=== PATIENT | male | born 1965 | race Two or more races ===

== ENCOUNTER 2020-03-15 20:56 | Inpatient (IN) | payer MEDICAID ==
[~2020-03-15] VITALS: Ht 188 cm; Wt 75.2 kg
[2020-03-15 23:06] LABS: Urine Amorphous Crystal FEW /hpf (None Seen); Urine Bacteria FEW /hpf (None Seen); Urine Blood 2+ /uL (Negative); Urine Hyaline Cast MANY /lpf (0 - 2); Urine Mucus FEW (None Seen); Urine Specific Gravity 1.018 (1.001-1.035); Urine WBC 6 /hpf (0 - 3)
[2020-03-15 23:08] LABS: BUN/Creatinine Ratio 16.7; Bilirubin, Total 0.4 mg/dL (0.2-1.0); Calcium 7.5 mg/dL (8.5-10.1); Total Protein 7.4 g/dL (6.4-8.2)
[2020-03-15] MEDS ORDERED: InsuLIN R (HUMAN) 100 UNITS in SODIUM CHL 0.9% 99 ML IV SCH (23:10)
[2020-03-15] MEDS ORDERED: SODIUM BICARBONATE 8.4% INJ 50ML SYRINGE ONE (23:14)
[2020-03-15] MEDS ORDERED: SODIUM BICARBONATE 8.4 % INJ 50ML VIAL IV ONE (23:15)
[2020-03-15] MEDS ORDERED: DEXTROSE (50%) 50ML SYRG IV PRN (23:15)
[2020-03-15] MEDS ORDERED: InsuLIN REG 1unit/0.01ml Soln (100units/ml) ONE (23:16)
[2020-03-15 23:17] LABS: Basophils # (auto) 0 10 ^3/uL (0-0.2); Basophils % (auto) 0.2 % (0.0-2.0); Eosinophils # (auto) 0.3 10 ^3/uL (0-0.8); Eosinophils % (auto) 1.2 % (0.0-7.0); Hematocrit 42.2 % (41.0-53.0); Hemoglobin 12.7 g/dL (13.5-17.5); Lymphocytes # (auto) 0.4 10 ^3/uL (0.4-5.4); Lymphocytes % (auto) 2.2 % (10.0-50.0); Mean Corpuscular Hemoglobin 27.6 pg (28.0-32.0); Mean Corpuscular Hgb Conc. 30.2 g/dL (32.0-36.0); Mean Corpuscular Volume 91.5 fL (80.0-100.0); Monocytes # (auto) 1.9 10 ^3/uL (0-1.3); Neutrophils # (auto) 18.2 10 ^3/uL (1.6-8.6); Neutrophils % (auto) 87.4 % (37.0-80.0); Platelet Count (auto) 343 10^3/uL (140-450); Red Blood Cells 4.61 10^6/uL (4.5-5.90); Red Cell Distribution Width 15.8 % (11.8-14.3); White Blood Cell 20.8 10^3/uL (4.4-10.8)
[2020-03-15 23:23] LABS: Potassium 6.4 mmol/L (3.5-5.1)
[2020-03-15] MEDS: ACCU-CHEK COMFORT CURVE STRIP VI SCH (23:45)
[2020-03-16] MEDS ORDERED: CALCIUM CHL 100MG/ML 1,000 MG in D5W 5% 100 ML IV ONE (00:15)
[2020-03-16] MEDS ORDERED: SODIUM ZIRCONIUM CYCL 10 GM PAK PO ONE (00:15)
[2020-03-16] MEDS ORDERED: SODIUM CHLORIDE 0.9% 2,000 ML IV ONE (01:00)
[2020-03-16] MEDS ORDERED: InsuLIN REG 1unit/0.01ml Soln (100units/ml) IV ONE (01:30)
[2020-03-16] MEDS: ACCU-CHEK COMFORT CURVE STRIP VI SCH ×16 (01:39→22:29)
[2020-03-16] MEDS ORDERED: cefTRIAXone 1GM/50ML D5W 50 ML IV ONE (03:15)
[2020-03-16] MEDS ORDERED: ACETAMINOPHEN 325 MG TAB PO ONE ×2 (03:15→11:00)
[2020-03-16] MEDS ORDERED: levoFLOXacin 500MG 100 ML IV ONE (04:15)
[2020-03-16 04:21] LABS: Albumin 1.8 g/dL (3.4-5.0); Calcium 7.7 mg/dL (8.5-10.1); Potassium 5.1 mmol/L (3.5-5.1)
[2020-03-16 04:25] LABS: BUN/Creatinine Ratio 18.5; Bilirubin, Total 0.3 mg/dL (0.2-1.0); Total Protein 6.6 g/dL (6.4-8.2)
[2020-03-16] MEDS ORDERED: dilTIAZem 25 MG/5 ML VIAL IV ONE (05:00)
[2020-03-16] MEDS ORDERED: InsuLIN R (HUMAN) 100 UNITS in SODIUM CHL 0.9% 99 ML IV SCH ×2 (05:59→12:15)
[2020-03-16] MEDS: SODIUM CHLORIDE 0.9% 1,000 ML IV SCH ×2 (05:59→07:59)
[2020-03-16] MEDS ORDERED: DEXTROSE (50%) 50ML SYRG IV PRN (06:00)
[2020-03-16] MEDS ORDERED: MORPHINE SULF INJ 2 MG/ML SYRINGE 1ML IV PRN (06:00)
[2020-03-16] MEDS ORDERED: ONDANSETRON HCL 4 MG/2 ML VIAL IV PRN (06:00)
[2020-03-16] MEDS ORDERED: ACCU-CHEK COMFORT CURVE STRIP VI SCH (06:00)
[2020-03-16] MEDS ORDERED: NITROGLYCERIN 0.4 MG SL TAB SL PRN (06:00)
[2020-03-16 07:38] LABS: Calcium 7.7 mg/dL (8.5-10.1); Potassium 4.5 mmol/L (3.5-5.1)
[2020-03-16 07:41] LABS: BUN/Creatinine Ratio 17.9
[2020-03-16] MEDS ORDERED: SODIUM CHLORIDE 0.9% 1,000 ML IV SCH ×2 (09:59→11:59)
[2020-03-16] MEDS: AZITHROMYCIN 500MG/ 250ML 250 ML IV SCH (10:19)
[2020-03-16 13:47] LABS: BUN/Creatinine Ratio 19.3; Calcium 7.1 mg/dL (8.5-10.1); Potassium 3.6 mmol/L (3.5-5.1)
[2020-03-16] MEDS: ACETAMINOPHEN 325 MG TAB PO PRN ×2 (15:44→22:30)
[2020-03-16] MEDS ORDERED: SOD CHL 0.45% 1,000 ML IV SCH (16:00)
[2020-03-16] MEDS: InsuLIN R (HUMAN) 100 UNITS in SODIUM CHL 0.9% 99 ML IV SCH (17:34)
[2020-03-16 18:36] VITALS: BP 120/76
--- NOTE | 2020-03-16 18:36 | NUR ---
Pt being admitted to ICU ABIMAEL PADILLA admitted to ICU via gurney on surveillance system monitor, and portable 02. Patient transfered to bed, connected to ICU monitoring and oxygen, and weighed by bedscale. Patient oriented to Mike barber RN, unit, room, bed, and unit policies regarding patient care and visiting hours. All questions and concerns addressed, patient verbalized understanding.
[2020-03-16] MEDS ORDERED: SODIUM BICARBONATE 650 MG TAB PO ONE (18:45)
--- NOTE | 2020-03-16 18:48 | NUR ---
MRSA SENT TO LAB VIA BULLET
[2020-03-16 18:49] LABS: BUN/Creatinine Ratio 19.8; Calcium 7.4 mg/dL (8.5-10.1); Potassium 3.4 mmol/L (3.5-5.1)
--- NOTE | 2020-03-16 19:30 | NUR ---
SHIFT OPENING NOTE RECEIVED PATIENT AWAKE, ALERT AND ORIENTED X3, DELAYED. NO SOB, DISTRESS OR PAIN NOTED. ON 2L N/C. INSULIN DRIP AT 6 UNITS/ML. WILL TITRATE PER PROTOCOL. SCHUSTER CATH DRAINING YELLOW URINE TO GRAVITY. PHYSICAL ASSESSMENT COMPLETED, SEE INTERVENTIONS. INSTRUCTED ON POC AND TO CALL FOR ASSIST NEEDED. BED IS IN THE LOWEST POSITION WITH SIDE RAILS UP X2, CALL LIGHT IS WITHIN REACH.
[2020-03-16 20:00] VITALS: BP 148/78
[2020-03-16] MEDS: cefTRIAXone 1GM/50ML D5W 50 ML IV SCH (20:16)
[2020-03-16 21:00] VITALS: BP 125/73
[2020-03-16] MEDS: SODIUM BICARBONATE 650 MG TAB PO SCH (21:13)
[2020-03-16] MEDS: SODIUM BICARBONATE 50ML VIAL 50 ML in SOD CHL 0.45% 1,000 ML IV SCH (21:19)
[2020-03-16 22:00] VITALS: BP 131/64
--- NOTE | 2020-03-16 22:55 | NUR ---
UPDATED SISTER CHANI ON PATIENTS STATUS PASSWORD SET UP: CHRISTIANO 1213 Addendum: 03/17/20 at 0604 by Nicole Munoz RN PER SISTER, SHE WILL CALL IN THE MORNING WITH AN UPDATE [facility] FOR THE PATIENT.
[2020-03-16 23:00] VITALS: BP 151/79
[2020-03-17] VITALS (22 sets, daily range): BP systolic 111–166; BP diastolic 60–95
[2020-03-17] MEDS: ACCU-CHEK COMFORT CURVE STRIP VI SCH ×16 (00:06→22:30)
[2020-03-17 01:16] LABS: BUN/Creatinine Ratio 20.1; Calcium 6.9 mg/dL (8.5-10.1); Potassium 4.1 mmol/L (3.5-5.1)
--- NOTE | 2020-03-17 04:00 | NUR ---
MORNING HYGIENE CARE FULL BED BATH PERFORMED USING CHG WIPES. GOWN CHANGED. PARTIAL LINEN CHANGED. PATIENT REPOSITIONED FOR COMFORT. TOLERATED IT WELL.
[2020-03-17] MEDS: ACETAMINOPHEN 325 MG TAB PO PRN ×2 (04:39→19:45)
--- NOTE | 2020-03-17 04:40 | NUR ---
INCREASE TEMP 102.5 ORALLY. TYLENOL GIVEN. COOLING MEASURES STARTED. ICE PACKS PLACED ON BODY, COLD RAGS ON NECK AND FOREHEAD. WILL REASSESS IN AN HOUR.
[2020-03-17 05:28] LABS: Alcohol, Urine < 3.0 mg/dL (0-10); Amphetamine Screen, Urine NEGATIVE (NEGATIVE); Barbiturate Scree,Urine NEGATIVE (NEGATIVE); Benzodiazephine Screen, Urine NEGATIVE (NEGATIVE); Cannabinoid Screen, Urine NEGATIVE (NEGATIVE); Cocaine Screen, Urine NEGATIVE (NEGATIVE); Opiate Scree,Urine NEGATIVE (NEGATIVE); Phencyclidine Screen, Urine NEGATIVE (NEGATIVE)
[2020-03-17] MEDS: SODIUM BICARBONATE 50ML VIAL 50 ML in SOD CHL 0.45% 1,000 ML IV SCH ×3 (05:30→22:03)
[2020-03-17] MEDS: SODIUM BICARBONATE 650 MG TAB PO SCH ×2 (05:53→11:43)
--- NOTE | 2020-03-17 06:55 | NUR ---
PATIENT PULLED OUT IV FROM LEFT HAND ACCIDENTLY NEW IV STARTED TO RIGHT FOREARM 20 G BY AMY ROY.
--- NOTE | 2020-03-17 07:24 | NUR ---
END OF SHIFT REPORT GIVEN AND CARE ENDORSED TO RODNEY ROY.
--- NOTE | 2020-03-17 07:30 | NUR ---
ASSESS- PT. LYING IN BED AWAKE, ALERT AND ORIENTED TIMES FOUR. PT. IS FORGETFUL. DENIES ANY PAIN OR DISCOMFORT. LUNGS CLEAR KAY. INSPIRATORY AND EXPIRATORY. NO SOB. O2 2L N/C. ABD. SOFT, FLAT, NON-TENDER. BOWEL SOUNDS ALL FOUR QUADRANTS. NO N/V. F/C TO GRAVITY WITH CLEAR YELLOW URINE. RADIAL PULSES STRONG, PALPABLE KAY. RT. DORSALIS PEDAL PULSE WEAK, PALPABLE. NO EDEMA. SCAB TO LT. BKA, NO OPENING. PT. MOVES ALL EXTREMITIES WITHOUT DIFFICULTY. ABLE TO TURN SELF IN BED.
[2020-03-17] MEDS: AZITHROMYCIN 500MG/ 250ML 250 ML IV SCH (09:38)
--- NOTE | 2020-03-17 10:30 | NUR ---
TECH AT BS FOR KAY. US KIDNEYS.
--- NOTE | 2020-03-17 10:40 | NUR ---
PT'S. SISTER CHANI CALLED AND HAD PASSWORD. GAVE UPDATE ON PHONE.
[2020-03-17] MEDS ORDERED: SUCCINYLCHOLINE CHLORIDE 20 MG/ML 10ML VIAL IV ONE (12:42)
--- NOTE | 2020-03-17 14:20 | NUR ---
DR. ESPOSITO Provider/Hospitalist at bedside. GAVE UPDATE ON PT. NEW ORDERS RECEIVED.
[2020-03-17] MEDS: InsuLIN R (HUMAN) 100 UNITS in SODIUM CHL 0.9% 99 ML IV SCH (16:41)
--- NOTE | 2020-03-17 17:00 | NUR ---
PT. HAS BEEN RESTING WITH EYES CLOSED. NO SIGNS OF DISTRESS OR DISCOMFORT.
--- NOTE | 2020-03-17 19:30 | NUR ---
Opening Shift Note Received pt in bed, alert and oriented times four. Full assessment done see interventions. Bed locked in lowest position. All alarms on and audible. On insulin gtt. IV 20g to right forearm, patent and site benign. IV to left AC patent and benign. Will continue to monitor closely.
--- NOTE | 2020-03-17 19:45 | NUR ---
Febrile at 100.8. Tylenol given.
[2020-03-17] MEDS: cefTRIAXone 1GM/50ML D5W 50 ML IV SCH (21:58)
--- NOTE | 2020-03-17 22:30 | NUR ---
Family Pt's sister phoned, update given.
[2020-03-18] VITALS (19 sets, daily range): BP systolic 119–162; BP diastolic 69–98
[2020-03-18] MEDS: ACCU-CHEK COMFORT CURVE STRIP VI SCH ×12 (01:30→21:27)
[2020-03-18 04:27] LABS: Basophils # (auto) 0 10 ^3/uL (0-0.2); Basophils % (auto) 0.5 % (0.0-2.0); Eosinophils # (auto) 0.6 10 ^3/uL (0-0.8); Eosinophils % (auto) 7.5 % (0.0-7.0); Hematocrit 30.7 % (41.0-53.0); Hemoglobin 10.5 g/dL (13.5-17.5); Lymphocytes # (auto) 0.5 10 ^3/uL (0.4-5.4); Lymphocytes % (auto) 6.5 % (10.0-50.0); Mean Corpuscular Hemoglobin 28.3 pg (28.0-32.0); Mean Corpuscular Hgb Conc. 34.3 g/dL (32.0-36.0); Mean Corpuscular Volume 82.7 fL (80.0-100.0); Monocytes # (auto) 0.4 10 ^3/uL (0-1.3); Monocytes % (auto) 4.5 % (0.0-12.0); Neutrophils # (auto) 6.7 10 ^3/uL (1.6-8.6); Platelet Count (auto) 185 10^3/uL (140-450); Red Blood Cells 3.71 10^6/uL (4.5-5.90); Red Cell Distribution Width 14.9 % (11.8-14.3); White Blood Cell 8.3 10^3/uL (4.4-10.8)
[2020-03-18 04:43] LABS: Magnesium 1.7 mg/dL (1.6-2.6)
[2020-03-18 04:45] LABS: BUN/Creatinine Ratio 19.1; Potassium 2.8 mmol/L (3.5-5.1)
--- NOTE | 2020-03-18 05:00 | NUR ---
Cares Pt refused bed bath and linen change at this time. stated he wants to sleep longer
--- NOTE | 2020-03-18 06:36 | NUR ---
Paged hospitalist for critical potassium level of 2.8. New orders received.
[2020-03-18] MEDS ORDERED: POTASSIUM CHLORIDE 40 MEQ, LIDOCAINE 1% (LOCAL ANESTH.) 4 ML in SODIUM CHL 0.9% 100 ML IV ONE (06:45)
[2020-03-18] MEDS ORDERED: POTASSIUM CHL 20 Meq TABLET PO ONE ×2 (06:45→13:30)
[2020-03-18] MEDS: InsuLIN R (HUMAN) 100 UNITS in SODIUM CHL 0.9% 99 ML IV SCH (07:29)
--- NOTE | 2020-03-18 07:30 | NUR ---
ASSESS- PT. LYING IN BED WITH EYES CLOSED, AROUSABLE TO NAME. ALERT AND ORIENTED TIMES FOUR. DENIES ANY PAIN OR DISCOMFORT. LUNGS CLEAR KAY. INSPIRATORY AND EXPIRATORY. NO SOB. ON R/A. ABD. SOFT, FLAT, NON-TENDER. NO N/V. BOWEL SOUNDS ALL FOUR QUADRANTS. F/C TO GRAVITY WITH CLEAR YELLOW URINE. RADIAL PULSES STRONG, PALPABLE KAY. DORSALIS PEDAL PULSE RT. FT WEAK, PALPABLE . LT. BKA WITH CLOSED SCAB OPEN TO AIR.
[2020-03-18] MEDS: SODIUM BICARBONATE 50ML VIAL 50 ML in SOD CHL 0.45% 1,000 ML IV SCH (08:02)
[2020-03-18] MEDS: AZITHROMYCIN 500MG/ 250ML 250 ML IV SCH (09:29)
--- NOTE | 2020-03-18 10:00 | NUR ---
PT. INCONTINENT OF LIQUID BROWN/GREEN STOOL. FABIANA CARE DONE AND COMPLETE LINEN CHANGE DONE AND GOWN CHANGED.
--- NOTE | 2020-03-18 12:12 | NUR ---
Nutrition Assessment note please see attached link for complete assessment Est Energy needs IBW 86 [id number] kcals (25-30 kcal/kgBW, Est Protein needs: 86-94 gms/day (1.0-1.1 gm/kgBW). Will continue to monitor and reassess prn. Addendum: 03/18/20 at [address] Amended: Links added.
--- NOTE | 2020-03-18 13:00 | NUR ---
PT. HAS BEEN RESTING WITH EYES CLOSED. NO SIGNS OF DISTRESS OR DISCOMFORT.
[2020-03-18] MEDS: SOD CHL 0.45% 1,000 ML IV SCH (13:39)
--- NOTE | 2020-03-18 13:44 | NUR ---
Called/paged Dr. MCKEON called re:. Waiting for call back. Continue care.
--- NOTE | 2020-03-18 14:00 | NUR ---
DR. MCKEON Provider/Hospitalist at bedside. GAVE UPDATE ON PT. AND INFORMED OF PT. RECEIVING 40 MEQ. KCL PO THIS AM AND 40 MEQ. KCL IV THIS AM GIVEN BY ME. ORDERED REPEAT K LEVEL NOW AND IF LEVEL BELOW NORMAL GIVE 40 MEQ. KCL PREVIOUSLY ORDERED BY DR. MCKEON.
--- NOTE | 2020-03-18 15:03 | NUR ---
DR. ESPOSITO Provider/Hospitalist at bedside. GAVE UPDATE ON PT. NEW ORDERS RECEIVED.
[2020-03-18] MEDS ORDERED: DEXTROSE (50%) 50ML SYRG IV PRN (15:15)
[2020-03-18] MEDS ORDERED: INSULIN LANTUS (GLARGINE) 1 /0.01ml (100units/ml) SC ONE (15:15)
--- NOTE | 2020-03-18 15:35 | NUR ---
REPEAT K LEVEL 3.4. GAVE PT. 40 MEQ. KCL PO ORDERED BY DR. MCKEON IF K LEVEL REMAINED BELOW NORMAL.
[2020-03-18] MEDS: InsuLIN REG 1unit/0.01ml Soln (100units/ml) SC SCH ×2 (17:07→21:26)
--- NOTE | 2020-03-18 18:30 | NUR ---
PT. TOLERATING 2GM. NA, CONSISTENT CARB DIET. NO N/V. SWALLOWING WITHOUT DIFFICULTY.
[2020-03-18] MEDS: cefTRIAXone 1GM/50ML D5W 50 ML IV SCH (21:25)
--- NOTE | 2020-03-18 23:01 | NUR ---
sister called updated on pt status and informed on tele order. family member aware and all questions answered.
[2020-03-19] VITALS (15 sets, daily range): BP systolic 98–147; BP diastolic 62–95
[2020-03-19] MEDS: SOD CHL 0.45% 1,000 ML IV SCH ×2 (02:50→04:05)
[2020-03-19 04:31] LABS: Potassium 3.3 mmol/L (3.5-5.1)
[2020-03-19 04:39] LABS: BUN/Creatinine Ratio 17.5; Calcium 6.7 mg/dL (8.5-10.1)
[2020-03-19 04:59] LABS: Basophils # (auto) 0 10 ^3/uL (0-0.2); Basophils % (auto) 0.2 % (0.0-2.0); Eosinophils # (auto) 0.9 10 ^3/uL (0-0.8); Eosinophils % (auto) 12.6 % (0.0-7.0); Hematocrit 28.2 % (41.0-53.0); Hemoglobin 9.6 g/dL (13.5-17.5); Lymphocytes # (auto) 0.7 10 ^3/uL (0.4-5.4); Lymphocytes % (auto) 9.6 % (10.0-50.0); Mean Corpuscular Hgb Conc. 33.9 g/dL (32.0-36.0); Mean Corpuscular Volume 82.5 fL (80.0-100.0); Monocytes # (auto) 0.4 10 ^3/uL (0-1.3); Monocytes % (auto) 5.2 % (0.0-12.0); Neutrophils # (auto) 5.2 10 ^3/uL (1.6-8.6); Neutrophils % (auto) 72.4 % (37.0-80.0); Nucleated Red Blood Cells % 0.1 %; Platelet Count (auto) 139 10^3/uL (140-450); Red Blood Cells 3.42 10^6/uL (4.5-5.90); Red Cell Distribution Width 14.7 % (11.8-14.3); White Blood Cell 7.1 10^3/uL (4.4-10.8)
[2020-03-19] MEDS ORDERED: POTASSIUM CHL 20MEQ/100ML 100 ML IV ONE (06:00)
[2020-03-19] MEDS: InsuLIN REG 1unit/0.01ml Soln (100units/ml) SC SCH ×4 (06:12→22:00)
[2020-03-19] MEDS: ACCU-CHEK COMFORT CURVE STRIP VI SCH ×4 (06:13→22:00)
--- NOTE | 2020-03-19 07:09 | NUR ---
ENDORSED CARE TO DAY NURSE. PT AWAKE AND ALERT. NO DISTRESS NOTED.
--- NOTE | 2020-03-19 07:25 | NUR ---
INITIAL CONTACT Report received from Garrett ROY, care assumed. Patient observed resting in bed, no distress noted. Patient is awake, alert, and oriented. Axillary temperature 99.5, blankets removed. Patient able to reposition self in bed. Left BKA noted. Pulses palpable bilaterally. Lungs clear, pt on room air. Respiratory even, and unlabored, denies shortness of breath. Chicas catheter patent and secured below bladder. See skin/wound assessment. Bed locked in lowest position, call light within reach. Patient instructed to call for assistance. Patient verbalized understanding. Will continue to monitor.
--- NOTE | 2020-03-19 09:30 | NUR ---
ELIMINATION Patient assisted on to bedpan for bowel movement. Small amount of liquid brown stool elimination. Ivelisse care and chux change performed.
--- NOTE | 2020-03-19 11:17 | NUR ---
MD VISIT Dr.Tanjavour jang at bedside.
--- NOTE | 2020-03-19 12:00 | NUR ---
MD VISIT roundfanny at bedside. MD reviewing medical chart.
[2020-03-19] MEDS: ACETAMINOPHEN 325 MG TAB PO PRN (12:01)
[2020-03-19] MEDS: AZITHROMYCIN 500MG/ 250ML 250 ML IV SCH (12:01)
[2020-03-19] MEDS: SODIUM CHLORIDE 0.9% 1,000 ML IV SCH (13:39)
--- NOTE | 2020-03-19 14:03 | NUR ---
PT EVAL Physical therapist at bedside for evaluation.
--- NOTE | 2020-03-19 15:22 | NUR ---
ELIMINATION Patient assisted to bedside commode for bowel movement. Ivelisse care and chux change performed. Patient ambulated back to bed without difficulty. Vital signs remain stable. Will continue to monitor.
--- NOTE | 2020-03-19 16:40 | NUR ---
MD VISIT Dr.Sandhu jang at bedside.
--- NOTE | 2020-03-19 17:09 | NUR ---
FAMILY Samina, patient sister called for update. Password provided.
--- NOTE | 2020-03-19 18:10 | NUR ---
PAGED paged regarding elevated blood sugar trends. Awaiting call back with orders regarding change in sliding scale.
--- NOTE | 2020-03-19 18:34 | NUR ---
RETURNED PAGE ordered for sliding scale to be increased.
--- NOTE | 2020-03-19 19:12 | NUR ---
REPORT Report given to Juan ROY care endorsed.
--- NOTE | 2020-03-19 20:09 | NUR ---
REPORT GIVEN TO JAROCHO PT WILL BE MOVED TO ROOM 272A AFTER COMPLETING 2000 INTERVENTIONS
--- NOTE | 2020-03-19 20:39 | NUR ---
PATIENTS BELONGINGS PT STATES THAT HE HAD LUISITO SIN, STATES IF HE DOES NOT HAVE IT THEN MOST LIKELY HIS FATHER TOOK IT. I DO NOT SEE JANUARY ON "PATIENT PROPERTY MANAGEMENT FROM"
--- NOTE | 2020-03-19 20:52 | NUR ---
PT TRANSFERRED TO TELE 272A TRANSFERRED BY WHEELCHAIR ON TELE, ROOM AIR, WITH RN (TONI) AND DIVYA (ELECTRICAL ASSISTANT/SECRETORY) BY THE SIDE. BROUGHT WITH PT FOLDER AND BELONGINGS (PROSTHETIC LEG, SHOE, CLOTHING). PT TOLERATED WELL. JAROCHO (KIRILL) AT BEDSIDE.
[2020-03-19] MEDS: cefTRIAXone 1GM/50ML D5W 50 ML IV SCH (21:12)
[2020-03-19] MEDS: HEPARIN SODIUM (PORCINE) 5000 UNITS/ML 1ML VIAL SC SCH (22:20)
[2020-03-20] MEDS: SODIUM CHLORIDE 0.9% 1,000 ML IV SCH (01:20)
[2020-03-20 05:09] VITALS: BP 141/94
[2020-03-20 06:14] LABS: Calcium 6.7 mg/dL (8.5-10.1); Potassium 3.4 mmol/L (3.5-5.1)
[2020-03-20 06:18] LABS: BUN/Creatinine Ratio 17.9; Bilirubin, Total 0.2 mg/dL (0.2-1.0); Phosphorus 1.6 mg/dL (2.5-4.90); Total Protein 5.3 g/dL (6.4-8.2)
[2020-03-20] MEDS: ACCU-CHEK COMFORT CURVE STRIP VI SCH ×4 (06:43→22:00)
[2020-03-20] MEDS: InsuLIN REG 1unit/0.01ml Soln (100units/ml) SC SCH ×4 (06:48→22:00)
--- NOTE | 2020-03-20 07:30 | NUR ---
Opening Note Assumed patient care from NOC RN, Chet. Patient currently resting in bed, easily aroused and responds to name. Patient AOx4, no signs of distress at this time. Safety precautions in place, will continue to monitor.
[2020-03-20] MEDS: ACETAMINOPHEN 325 MG TAB PO PRN (08:48)
--- NOTE | 2020-03-20 08:49 | NUR ---
Febrile Patient currently has fever of 102 degrees F, Tylenol administered. Cooling measures offered, patient refusing at this time, patient educated on need for cooling measures but does not want ice pack or to remove extra blanket at this time. Patient states "[he] don't want it right now." Ice pack left at bedside, within reach, encouraged to utilize it to reduce fever.
[2020-03-20 09:11] VITALS: BP 144/85
[2020-03-20] MEDS ORDERED: POTASSIUM PHOSPHATE 44 MEQ in D5W 5% 250 ML IV ONE (10:15)
[2020-03-20] MEDS ORDERED: ERGOCALCIFEROL 50,000 UNIT(1.25MG) CAP PO SCH (10:15)
--- NOTE | 2020-03-20 10:20 | NUR ---
IV Discontinued Right FA and Left AC IV discontinued due to leaking and signs of infiltration, patient complaint of pain at IV sites. Sites appear reddened and irritated. Both IVs removed, catheters intact, pressure dressings applied to sites. New IV started on left forearm, 20gauge. Blood return noted, flushes easily. Patient tolerated well with no signs of distress, respirations even and unlabored. Will continue to monitor.
[2020-03-20] MEDS: AZITHROMYCIN 500MG/ 250ML 250 ML IV SCH (11:13)
[2020-03-20] MEDS: HEPARIN SODIUM (PORCINE) 5000 UNITS/ML 1ML VIAL SC SCH ×2 (11:13→22:47)
[2020-03-20 12:56] VITALS: BP 117/74
--- NOTE | 2020-03-20 14:57 | NUR ---
assessment Patient is a 54 year old male who is alert and oriented. Patients cognitive abilities are intact. Prior to admission patient lived home with family and functioned with assistance. Per patient he will return home to his prior living arrangements post discharge and family will transport him home. Patient informed me he came to ER for DKA. Patient was admitted to ICU. Patient will benefit from home health for diabetic education and medication management. Patient informed me he has a prosthetic leg, fww, and a wheelchair for home use. Patients PCP is Dr Wilder. Patient feels safe returning home on discharge. I informed patient he has a right to speak to a delinquency prevention social worker regarding all care. I informed patient he has a right to participate in any and all discharge planning. Patient does not have a POA and advanced directive. I have offered patient information on POA and advanced directives. I informed the patient the advantages and benefits of having an Advanced Directive. Patient verbalized understanding and agreed to discharge plan. Addendum: 03/20/20 at 1459 by Sheridan MAURICIO Amended: Links added.
[2020-03-20 17:24] VITALS: BP 143/97
--- NOTE | 2020-03-20 17:36 | NUR ---
at bedside Dr. Abdi at bedside, new orders received.
--- NOTE | 2020-03-20 19:00 | NUR ---
Opening Shift Note Assumed care of patient, awake and alert. No S/S of distress/SOB or pain. Instructed on POC and to call for assist PRN, will continue to monitor for changes Q1hr and PRN.
[2020-03-20] MEDS: cefTRIAXone 1GM/50ML D5W 50 ML IV SCH (21:15)
[2020-03-20 22:00] VITALS: BP 152/99
[2020-03-21 05:00] VITALS: BP 126/83
[2020-03-21 06:00] LABS: Basophils # (auto) 0 10 ^3/uL (0-0.2); Basophils % (auto) 0.3 % (0.0-2.0); Eosinophils % (auto) 14.1 % (0.0-7.0); Hematocrit 27.6 % (41.0-53.0); Hemoglobin 9.4 g/dL (13.5-17.5); Lymphocytes % (auto) 13.2 % (10.0-50.0); Mean Corpuscular Hemoglobin 28.4 pg (28.0-32.0); Mean Corpuscular Hgb Conc. 34.2 g/dL (32.0-36.0); Mean Corpuscular Volume 83.1 fL (80.0-100.0); Monocytes # (auto) 0.7 10 ^3/uL (0-1.3); Monocytes % (auto) 10.1 % (0.0-12.0); Neutrophils # (auto) 4.5 10 ^3/uL (1.6-8.6); Neutrophils % (auto) 62.3 % (37.0-80.0); Platelet Count (auto) 121 10^3/uL (140-450); Red Blood Cells 3.32 10^6/uL (4.5-5.90); Red Cell Distribution Width 14.9 % (11.8-14.3); White Blood Cell 7.3 10^3/uL (4.4-10.8)
[2020-03-21 06:23] LABS: Potassium 3.8 mmol/L (3.5-5.1)
[2020-03-21] MEDS: ACCU-CHEK COMFORT CURVE STRIP VI SCH ×4 (06:35→22:19)
[2020-03-21 06:37] LABS: BUN/Creatinine Ratio 18.2; Bilirubin, Total 0.2 mg/dL (0.2-1.0); Magnesium 1.6 mg/dL (1.6-2.6); Phosphorus 3.1 mg/dL (2.5-4.90); Total Protein 5.5 g/dL (6.4-8.2)
[2020-03-21] MEDS: InsuLIN REG 1unit/0.01ml Soln (100units/ml) SC SCH ×4 (06:55→22:21)
--- NOTE | 2020-03-21 07:30 | NUR ---
Opening Note Patient currently sitting up in bed for breakfast. Patient is AOx4, no signs of distress at this time. Respirations even and unlabored. Denies pain. Safety precautions in place. Will continue to monitor.
[2020-03-21 08:13] VITALS: BP 137/68
[2020-03-21] MEDS ORDERED: INSULIN LANTUS (GLARGINE) 1 /0.01ml (100units/ml) SC SCH (10:00)
[2020-03-21] MEDS: AZITHROMYCIN 250 MG TAB PO SCH (10:06)
[2020-03-21] MEDS: HEPARIN SODIUM (PORCINE) 5000 UNITS/ML 1ML VIAL SC SCH ×2 (10:09→22:14)
[2020-03-21] MEDS: MAGNESIUM SULFATE 1GM/100ML 100 ML IV SCH ×2 (10:48→12:12)
--- NOTE | 2020-03-21 12:01 | NUR ---
Nutrition Followup note Pt wt is 75.2 kg Pt was sleeping when rounded this morning. Pt with a CCHO 60g oral diet, appetite is good aeb ave 83% PO intake over three meals. Pt with no distress per RN doc. Will continue to closely monitor pertinent labs, PO intake and skin status prn. Will followup in 3-5 days Est Energy needs IBW 86 [id number] kcals (25-30 kcal/kgBW, Est Protein needs: 86-94 gms/day (1.0-1.1 gm/kgBW). Will continue to monitor and reassess prn. LABS: Na 133 L, BUN 35 H, Cr 1.92 H, GFR 39 L, POC Gluc 298 L, Ca 7.0 L, Alb 1.0 L GI: Pt with 3 BM on 03/19 per RN doc BS: 18 mod risk. Please refer to wound assessment report for full details. PES: Problem Altered nutrition related lab values r.t current chronic medical condition aeb elev RFT hyperglycemia, severe hypoalb Problem Increased nutrient needs r.t chronic medical condition aeb pt`s underwt with BMI of 17.9 kgm2 Comments 1) advance diet as medically feiasble 2) refer to CDE on DC 3) consider prostat 1 packet bid as RFT improve 4) continue current plan of care
[2020-03-21 13:13] VITALS: BP 111/68
--- NOTE | 2020-03-21 14:00 | NUR ---
Pt declined PT tx today. Addendum: 03/21/20 at 1534 by Thierry Newell OFFICE SERVICES COORDINATOR Amended: Links added.
--- NOTE | 2020-03-21 15:14 | NUR ---
D/C Planning Per SS consult for safety evaluation. Faxed clinical information to [facility] and [facility]. Per Diane with [facility] [phone] patient has been accepted and service to start within 24-48hrs upon d/c day. Obtain authorization from [facility] [id number].
--- NOTE | 2020-03-21 16:14 | NUR ---
at Bedside Dr. Abdi at bedside discussing plan of care with patient. New orders received. Possible discharge tomorrow.
[2020-03-21 17:02] VITALS: BP 121/74
--- NOTE | 2020-03-21 19:11 | NUR ---
Closing Note Endorsed patient care to [facility] Joao ROY.
[2020-03-21] MEDS: cefTRIAXone 1GM/50ML D5W 50 ML IV SCH (21:45)
[2020-03-21 22:00] VITALS: BP 122/69
[2020-03-21] MEDS: ACETAMINOPHEN 325 MG TAB PO PRN (22:30)
[2020-03-22 05:00] VITALS: BP 124/70
[2020-03-22 06:24] LABS: Potassium 3.7 mmol/L (3.5-5.1)
[2020-03-22] MEDS: ACCU-CHEK COMFORT CURVE STRIP VI SCH ×3 (06:29→17:50)
[2020-03-22] MEDS: InsuLIN REG 1unit/0.01ml Soln (100units/ml) SC SCH ×3 (06:30→17:50)
[2020-03-22] MEDS: ACETAMINOPHEN 325 MG TAB PO PRN (06:35)
[2020-03-22 06:38] LABS: Albumin 1.1 g/dL (3.4-5.0); BUN/Creatinine Ratio 18.8; Bilirubin, Total 0.2 mg/dL (0.2-1.0); Calcium 7.2 mg/dL (8.5-10.1); Total Protein 6.1 g/dL (6.4-8.2)
--- NOTE | 2020-03-22 07:30 | NUR ---
Opening Shift Note Assumed care of patient, asleep, even unlabored respirations. No S/S of distress/SOB or pain. Bed in lowest locked position, bed rails up x2, call light within reach. Will continue to monitor for changes Q1hr and PRN.
[2020-03-22 09:00] VITALS: BP 128/81
[2020-03-22] MEDS ORDERED: HEPARIN SODIUM (PORCINE) 5000 UNITS/ML 1ML VIAL ONE (09:31)
[2020-03-22] MEDS: AZITHROMYCIN 250 MG TAB PO SCH (09:37)
[2020-03-22] MEDS: HEPARIN SODIUM (PORCINE) 5000 UNITS/ML 1ML VIAL SC SCH (09:43)
[2020-03-22] MEDS ORDERED: INSULIN LANTUS (GLARGINE) 1 /0.01ml (100units/ml) SC SCH (10:00)
--- NOTE | 2020-03-22 11:20 | NUR ---
BOWEL MOVEMENT PATIENT HAD LARGE BROWN SOFT BM
[2020-03-22 13:00] VITALS: BP 132/64
[2020-03-22 16:56] VITALS: BP 148/72
--- NOTE | 2020-03-22 17:20 | NUR ---
SCHUSTER SCHUSTER CATHETER REMOVED. PATIENT TOLERATED WELL. INSTRUCTED PATIENT TO INFORM RN WHEN HE URINATES. PATIENT VERBALIZED UNDERSTANDING. WILL CONTINUE TO MONITOR Addendum: 03/22/20 at 1749 by DARIUSZ TOBAR RN RN APPROXIMATEL 250 ML CLEAR STRAW URINE EMPTIED WITH SCHUSTER
--- NOTE | 2020-03-22 18:50 | NUR ---
ROUNDS ROUNDED ON PATIENT. PATIENT DISCHARGED. QUESTIONED PATIENT ABOUT URINATING PATIENT STATED "HE WAS READY TO GO HOME AND DIDN'T WANT TO WAIT TO URINATE."
--- NOTE | 2020-03-22 19:34 | NUR ---
Discharge instructions given as ordered. Encourage to follow up with PMD as instructed. All questions and concerns addressed. Patient verbalized understanding. IV removed with catheter intact, pressure dressing applied, ayala catheter removed. Telemetry unit returned to ICU. Patient taken to vehicle via wheelchair with all personal belongings, accompanied by staff. No distress noted at time of departure.
== END 2020-03-22 19:30 | disposition home or self-care (01) | DRG 720 ==
LOC: EDBD 20:56 → ER 21:02 → TELE 21:03 → ICU WEST 03-16 18:21 → TELE-WESTW 03-19 20:56
PROVIDERS: ADMIT Nurse Practitioner; ATTEND Internal Medicine
DX: A41.9 Sepsis, unspecified organism (principal); N17.0 Acute kidney failure with tubular necrosis; E11.10 Type 2 diabetes mellitus with ketoacidosis without coma; E44.0 Moderate protein-calorie malnutrition; E87.2 Acidosis; J18.9 Pneumonia, unspecified organism; E11.22 Type 2 diabetes mellitus with diabetic chronic kidney disease; E87.0 Hyperosmolality and hypernatremia; E87.5 Hyperkalemia; E87.1 Hypo-osmolality and hyponatremia; E87.6 Hypokalemia; E83.39 Other disorders of phosphorus metabolism; Z89.512 Acquired absence of left leg below knee; Z91.14 Patient's other noncompliance with medication regimen; Z68.21 Body mass index [BMI] 21.0-21.9, adult; Z20.828 Contact with and (suspected) exposure to other viral communicable diseases; E88.09 Other disorders of plasma-protein metabolism, not elsewhere classified; N18.3 Chronic kidney disease, stage 3 (moderate); E11.65 Type 2 diabetes mellitus with hyperglycemia
CPT/HCPCS: 36415; 36600; 71045; 76775; 80048; 80053; 80307; 81001; 82010; 82306; 82570; 82805; 82962; 83036; 83605; 83735; 84100; 84132; 84156; 84300; 85025; 87040; 87070; 87081; 87804; 87880; 93005; 96361; 96365; 96368; 96375; 97116; 97163; 97530; G0378; J0330; J0696; J1815; J1956; J2001; J3480; J7060

== ENCOUNTER 2020-04-23 11:09 | Inpatient (IN) | payer MEDICAID ==
[~2020-04-23] VITALS: Ht 152.4 cm; Wt 67.9 kg
[2020-04-23] MEDS ORDERED: methylPREDNISolone SOD SUCC 125 MG/2 ML VL IV ONE (12:15)
[2020-04-23] MEDS ORDERED: SODIUM CHLORIDE 0.9% 1,000 ML IV ONE (12:15)
[2020-04-23 14:36] LABS: Basophils # (auto) 0 10 ^3/uL (0-0.2); Eosinophils # (auto) 0.1 10 ^3/uL (0-0.8); Lymphocytes # (auto) 0.3 10 ^3/uL (0.4-5.4); Mean Corpuscular Volume 89.8 fL (80.0-100.0); Monocytes # (auto) 0.2 10 ^3/uL (0-1.3); Neutrophils # (auto) 3.3 10 ^3/uL (1.6-8.6)
[2020-04-23 14:38] LABS: Basophils % (auto) 0.9 % (0.0-2.0); Eosinophils % (auto) 1.5 % (0.0-7.0); Hemoglobin 8.5 g/dL (13.5-17.5); Lymphocytes % (auto) 8.5 % (10.0-50.0); Mean Corpuscular Hemoglobin 27.3 pg (28.0-32.0); Mean Corpuscular Hgb Conc. 30.4 g/dL (32.0-36.0); Monocytes % (auto) 5.1 % (0.0-12.0); Nucleated Red Blood Cells % 0.1 %; Platelet Count (auto) 218 10^3/uL (140-450); Red Blood Cells 3.12 10^6/uL (4.5-5.90); Red Cell Distribution Width 15.8 % (11.8-14.3)
[2020-04-23] MEDS ORDERED: MORPHINE SULF INJ 2 MG/ML SYRINGE 1ML IV PRN (14:45)
[2020-04-23] MEDS ORDERED: NITROGLYCERIN 0.4 MG SL TAB SL PRN (14:45)
[2020-04-23 14:46] LABS: Albumin 1.3 g/dL (3.4-5.0); Anion Gap 24 (5-15); Blood Urea Nitrogen 77 mg/dL (7-18); Calcium 7.3 mg/dL (8.5-10.1); Chloride 96 mmol/L (98-107); Magnesium 2.7 mg/dL (1.6-2.6); Potassium 4.8 mmol/L (3.5-5.1); Sodium 129 mmol/L (136-145)
[2020-04-23 14:55] LABS: Alanine Aminotransferase 8 U/L (16-61); Alkaline Phosphatase 85 U/L (45-117); Aspartate Aminotransferase 8 U/L (15-37); BUN/Creatinine Ratio 18.8; Bilirubin, Total 0.4 mg/dL (0.2-1.0); GFR African American 20 mL/min; GFR Non-African American 16 mL/min; Lactate Dehydrogenase 181 U/L (87-241); Total Protein 6.1 g/dL (6.4-8.2)
[2020-04-23 15:04] LABS: Carbon Dioxide 9 mmol/L (21-32); Glucose 806 mg/dL (74-106)
[2020-04-23] MEDS ORDERED: DEXTROSE (50%) 50ML SYRG IV PRN (17:30)
[2020-04-23] MEDS ORDERED: SODIUM CHLORIDE 0.9% 1,000 ML IV SCH ×3 (17:30→23:21)
[2020-04-23] MEDS ORDERED: FUROSEMIDE 40 MG/4 ML VIAL IV ONE ×2 (17:30→19:55)
[2020-04-23] MEDS ORDERED: VANCOMYCIN PER PHARMACY 0 MG IV SCH (17:30)
[2020-04-23] MEDS ORDERED: INSULIN LANTUS (GLARGINE) 1 /0.01ml (100units/ml) SC ONE (17:30)
[2020-04-23] MEDS ORDERED: SODIUM BICARBONATE 8.4 % INJ 50ML VIAL IV ONE ×2 (17:30→18:45)
[2020-04-23] MEDS ORDERED: FUROSEMIDE 100 MG/10ML VIAL IV ONE (17:45)
[2020-04-23] MEDS: ACCU-CHEK COMFORT CURVE STRIP VI SCH ×5 (18:30→23:32)
[2020-04-23] MEDS ORDERED: LACTATED RINGER'S 1,000 ML IV ONE (19:00)
[2020-04-23] MEDS ORDERED: SODIUM CHLORIDE 0.9% 3,000 ML IV ONE (19:00)
[2020-04-23] MEDS: InsuLIN R (HUMAN) 100 UNITS in SODIUM CHL 0.9% 99 ML IV SCH (19:10)
[2020-04-23] MEDS ORDERED: FAMOTIDINE (10MG/ML) 2ML VL IV ONE (19:55)
[2020-04-23] MEDS ORDERED: ONDANSETRON HCL 4 MG/2 ML VIAL IM ONE (20:00)
[2020-04-23] MEDS ORDERED: VANCOMYCIN 1GM/250ML 250 ML IV ONE (20:00)
[2020-04-23 20:28] LABS: Albumin 1.5 g/dL (3.4-5.0); Magnesium 2.7 mg/dL (1.6-2.6)
[2020-04-23] MEDS: SODIUM CHLORIDE 0.9% 1,000 ML IV SCH ×2 (20:32→21:11)
[2020-04-23 20:36] LABS: BUN/Creatinine Ratio 19.8; Bilirubin, Total 0.6 mg/dL (0.2-1.0); Calcium 7.6 mg/dL (8.5-10.1); Total Protein 6.2 g/dL (6.4-8.2)
[2020-04-23 20:44] LABS: CRP High Sensitivity 15.1 mg/dL (< 0.3)
[2020-04-23 20:48] LABS: Potassium 5.7 mmol/L (3.5-5.1)
[2020-04-23 20:59] LABS: Basophils # (auto) 0 10 ^3/uL (0-0.2); Basophils % (auto) 0.7 % (0.0-2.0); Eosinophils # (auto) 0.1 10 ^3/uL (0-0.8); Eosinophils % (auto) 2.9 % (0.0-7.0); Hematocrit 31.5 % (41.0-53.0); Hemoglobin 9.8 g/dL (13.5-17.5); Lymphocytes # (auto) 0.3 10 ^3/uL (0.4-5.4); Lymphocytes % (auto) 6.5 % (10.0-50.0); Mean Corpuscular Hemoglobin 26.8 pg (28.0-32.0); Mean Corpuscular Volume 86.5 fL (80.0-100.0); Monocytes # (auto) 0.1 10 ^3/uL (0-1.3); Monocytes % (auto) 3.3 % (0.0-12.0); Neutrophils # (auto) 3.8 10 ^3/uL (1.6-8.6); Neutrophils % (auto) 86.6 % (37.0-80.0); Platelet Count (auto) 251 10^3/uL (140-450); Red Blood Cells 3.64 10^6/uL (4.5-5.90); Red Cell Distribution Width 15.2 % (11.8-14.3); White Blood Cell 4.4 10^3/uL (4.4-10.8)
[2020-04-23 21:27] LABS: Lactic Acid w/Reflex 2.3 mmol/L (0.4-2.0)
[2020-04-23 21:29] LABS: Urine Bacteria NONE SEEN /hpf (None Seen); Urine Blood 3+ /uL (Negative); Urine Hyaline Cast FEW /lpf (0 - 2); Urine Specific Gravity 1.011 (1.001-1.035); Urine WBC 4 /hpf (0 - 3)
[2020-04-23] MEDS ORDERED: ALBUTEROL SULF HFA 90MCG INH 200DOSE IN SCH (22:00)
[2020-04-23] MEDS: PIPERACILLIN-TAZOB 2.25GM 50 ML IV SCH (22:27)
[2020-04-23] MEDS: ACETAMINOPHEN 500 MG TAB PO PRN (23:30)
[2020-04-24] MEDS: SODIUM CHLORIDE 0.9% 1,000 ML IV SCH ×3 (01:27→14:33)
[2020-04-24] MEDS: ACCU-CHEK COMFORT CURVE STRIP VI SCH ×11 (01:43→16:30)
[2020-04-24 07:53] LABS: Urine Amorphous Crystal MOD /hpf (None Seen); Urine Bacteria MOD /hpf (None Seen); Urine Blood 3+ /uL (Negative); Urine Hyaline Cast MANY /lpf (0 - 2); Urine Mucus FEW (None Seen); Urine Specific Gravity 1.014 (1.001-1.035); Urine WBC 12 /hpf (0 - 3); Urine WBC Clumps PRESENT /hpf (None Seen)
[2020-04-24 08:07] LABS: Alcohol, Urine < 3.0 mg/dL (0-10); Amphetamine Screen, Urine NEGATIVE (NEGATIVE); Barbiturate Scree,Urine NEGATIVE (NEGATIVE); Benzodiazephine Screen, Urine NEGATIVE (NEGATIVE); Cannabinoid Screen, Urine NEGATIVE (NEGATIVE); Cocaine Screen, Urine NEGATIVE (NEGATIVE); Opiate Scree,Urine NEGATIVE (NEGATIVE)
[2020-04-24 08:10] LABS: Basophils # (auto) 0 10 ^3/uL (0-0.2); Basophils % (auto) 0.7 % (0.0-2.0); Eosinophils # (auto) 0.4 10 ^3/uL (0-0.8); Eosinophils % (auto) 7.4 % (0.0-7.0); Hematocrit 24.8 % (41.0-53.0); Hemoglobin 8.2 g/dL (13.5-17.5); Lymphocytes # (auto) 0.3 10 ^3/uL (0.4-5.4); Lymphocytes % (auto) 7.1 % (10.0-50.0); Mean Corpuscular Hemoglobin 27.1 pg (28.0-32.0); Mean Corpuscular Hgb Conc. 33.2 g/dL (32.0-36.0); Mean Corpuscular Volume 81.7 fL (80.0-100.0); Monocytes # (auto) 0.2 10 ^3/uL (0-1.3); Monocytes % (auto) 4.5 % (0.0-12.0); Neutrophils # (auto) 3.9 10 ^3/uL (1.6-8.6); Neutrophils % (auto) 80.3 % (37.0-80.0); Nucleated Red Blood Cells % 0.1 %; Platelet Count (auto) 199 10^3/uL (140-450); Red Blood Cells 3.03 10^6/uL (4.5-5.90); Red Cell Distribution Width 14.9 % (11.8-14.3); White Blood Cell 4.8 10^3/uL (4.4-10.8)
[2020-04-24 08:16] LABS: Phencyclidine Screen, Urine NEGATIVE (NEGATIVE); Protein, Urine 319.6 mg/dL (0.0-11.9)
[2020-04-24] MEDS ORDERED: SODIUM BICARBONATE 50ML VIAL 150 ML in D5W 5% 1,000 ML IV SCH (08:30)
[2020-04-24 09:15] LABS: INR 1.26 (0.9-1.15); Partial Thromboplastin Time 35.1 sec (23.64-32.05)
[2020-04-24] MEDS: ENOXAPARIN SOD 30 MG/0.3 ML SYRINGE SC SCH (09:36)
[2020-04-24] MEDS: INSULIN LANTUS (GLARGINE) 1 /0.01ml (100units/ml) SC SCH (09:36)
[2020-04-24] MEDS ORDERED: CHOLECALCIFEROL (VITD3) 1,000UNIT=25mCg TAB PO SCH (10:00)
[2020-04-24] MEDS ORDERED: ZINC SULFATE 220mg CAP or TAB PO SCH (10:00)
[2020-04-24] MEDS ORDERED: ASCORBIC ACID 1,000 MG TAB PO SCH (10:00)
[2020-04-24] MEDS: PIPERACILLIN-TAZOB 2.25GM 50 ML IV SCH ×2 (10:27→18:42)
[2020-04-24] MEDS ORDERED: VANCOMYCIN 500 MG in D5W 5% 100 ML IV ONE (11:45)
[2020-04-24 11:54] LABS: BUN/Creatinine Ratio 19.3; Calcium 6.8 mg/dL (8.5-10.1); Potassium 3.3 mmol/L (3.5-5.1)
[2020-04-24] MEDS ORDERED: POTASSIUM CHLORIDE 20 MEQ, LIDOCAINE 1% (LOCAL ANESTH.) 2 ML in SODIUM CHL 0.9% 100 ML IV ONE (13:15)
[2020-04-24] MEDS ORDERED: INSUINJ9 SC (13:42)
[2020-04-24] MEDS ORDERED: CHOL50007 PO (13:43)
[2020-04-24 14:05] LABS: Albumin 1.1 g/dL (3.4-5.0); Calcium 6.8 mg/dL (8.5-10.1); Magnesium 2.1 mg/dL (1.6-2.6); Potassium 3.4 mmol/L (3.5-5.1); Uric Acid 9.5 mg/dL (3.5-7.2)
[2020-04-24 14:09] LABS: BUN/Creatinine Ratio 19.5; Bilirubin, Total 0.3 mg/dL (0.2-1.0); Total Protein 5.3 g/dL (6.4-8.2)
[2020-04-24] MEDS: ACETAMINOPHEN 500 MG TAB PO PRN (15:50)
[2020-04-24 16:33] LABS: Calcium 6.9 mg/dL (8.5-10.1); Potassium 3.7 mmol/L (3.5-5.1)
[2020-04-24] MEDS: InsuLIN R (HUMAN) 100 UNITS in SODIUM CHL 0.9% 99 ML IV SCH (17:21)
[2020-04-24] MEDS ORDERED: DEXTROSE (50%) 50ML SYRG IV PRN (17:45)
[2020-04-24] MEDS: InsuLIN REG 1unit/0.01ml Soln (100units/ml) SC SCH (20:00)
[2020-04-24] MEDS: SOD CHL 0.45% 1,000 ML IV SCH (20:00)
--- NOTE | 2020-04-24 21:15 | NUR ---
ADMITTED PATIENT FROM THE ER, AAOX4. NO DISTRESS NOTED. AFEBRILE. DENIES ANY PAIN NOW. MILD SOB NOTED ON EXERTION. ON 02 @5LPM/NV. DIMINISHED BREATH SOUNDS NOTED ON THE BASES. MILD GENERALIZED WEAKNESS NOTED. INTRODUCED MYSELF TO THE PATIENT. ORIENTATION DONE. ROUTINE ADMISSION DONE. POCS DISCUSSED WITH PATIENT AND SHOWED UNDERSTANDING. BED KEPT ON LOWEST POSITION. SIDE RAILS UP. CALL LIGHT/TABLE IN REACH. KEPT COMFORTABLE.
[2020-04-24 22:00] VITALS: BP 126/84
[2020-04-24 23:00] LABS: Calcium 6.9 mg/dL (8.5-10.1); Potassium 4.2 mmol/L (3.5-5.1)
[2020-04-24 23:03] LABS: BUN/Creatinine Ratio 18.3
[2020-04-25] VITALS (12 sets, daily range): BP systolic 104–134; BP diastolic 64–86
[2020-04-25] MEDS: ACCU-CHEK COMFORT CURVE STRIP VI SCH ×7 (00:02→20:00)
[2020-04-25] MEDS: PIPERACILLIN-TAZOB 2.25GM 50 ML IV SCH ×2 (01:50→09:57)
[2020-04-25] MEDS: InsuLIN REG 1unit/0.01ml Soln (100units/ml) SC SCH ×6 (04:00→20:00)
[2020-04-25] MEDS: SOD CHL 0.45% 1,000 ML IV SCH ×2 (05:05→16:12)
[2020-04-25] MEDS: ACETAMINOPHEN 500 MG TAB PO PRN ×2 (05:05→18:30)
[2020-04-25 06:55] LABS: Basophils # (auto) 0 10 ^3/uL (0-0.2); Eosinophils # (auto) 0.2 10 ^3/uL (0-0.8); Hematocrit 23.9 % (41.0-53.0); Lymphocytes # (auto) 0.4 10 ^3/uL (0.4-5.4); Monocytes # (auto) 0.1 10 ^3/uL (0-1.3); White Blood Cell 4.4 10^3/uL (4.4-10.8)
--- NOTE | 2020-04-25 07:00 | NUR ---
Opening Shift Note Received report on the patient. Awake lying in bed. Patient shows no signs of distress at this time. Discussed the plan of care with the patient. Bed in lowest position, side rails up x2, and call light is within reach.
[2020-04-25 07:01] LABS: Eosinophils % (auto) 5.6 % (0.0-7.0); Lymphocytes % (auto) 9.4 % (10.0-50.0); Mean Corpuscular Hemoglobin 27.2 pg (28.0-32.0); Mean Corpuscular Hgb Conc. 33.4 g/dL (32.0-36.0); Mean Corpuscular Volume 81.4 fL (80.0-100.0); Monocytes % (auto) 2.9 % (0.0-12.0); Neutrophils # (auto) 3.5 10 ^3/uL (1.6-8.6); Neutrophils % (auto) 81.1 % (37.0-80.0); Platelet Count (auto) 169 10^3/uL (140-450); Red Blood Cells 2.93 10^6/uL (4.5-5.90); Red Cell Distribution Width 14.7 % (11.8-14.3)
[2020-04-25 07:10] LABS: BUN/Creatinine Ratio 19.7; Calcium 6.4 mg/dL (8.5-10.1); Potassium 3.7 mmol/L (3.5-5.1)
[2020-04-25] MEDS: FAMOTIDINE (10MG/ML) 2ML VL IV SCH (09:57)
[2020-04-25] MEDS: ENOXAPARIN SOD 30 MG/0.3 ML SYRINGE SC SCH (09:57)
[2020-04-25] MEDS: INSULIN LANTUS (GLARGINE) 1 /0.01ml (100units/ml) SC SCH (10:15)
[2020-04-25] MEDS ORDERED: VANCOMYCIN 750mg/250ml 250 ML IV ONE (12:00)
--- NOTE | 2020-04-25 18:19 | NUR ---
Paged Dr Rubio regarding a change in the patient's condition. Rounded on patient and found him shivering and sweaty. Assessed the patient's vitals. Patient had a temp of 103.2 and was sating in the 80's. Patient took his O2 off. Called respiratory. Patient put on simple mask at 10L.
--- NOTE | 2020-04-25 18:26 | NUR ---
Dr Rubio called back. New orders received.
--- NOTE | 2020-04-25 18:27 | NUR ---
Paged Dr Ye and left a message. Awaiting a call back.
[2020-04-25] MEDS ORDERED: HEPARIN SODIUM (PORCINE) 5000 UNITS/ML 1ML VIAL IV ONE (18:30)
[2020-04-25] MEDS ORDERED: methylPREDNISolone SOD SUCC 125 MG/2 ML VL IV ONE (18:30)
[2020-04-25] MEDS ORDERED: FUROSEMIDE 20 MG/2 ML VIAL IV ONE (18:30)
--- NOTE | 2020-04-25 18:55 | NUR ---
Walked covid test to lab.
[2020-04-25] MEDS: DOXYCYCLINE 100MG/250ML 250 ML IV SCH (19:08)
[2020-04-25] MEDS ORDERED: HEPARIN SODIUM (PORCINE) 5000 UNITS/ML 1ML VIAL ONE ×2 (19:25)
[2020-04-25 19:38] LABS: Calcium 6.5 mg/dL (8.5-10.1)
[2020-04-25 19:41] LABS: BUN/Creatinine Ratio 19.8; Bilirubin, Total 0.2 mg/dL (0.2-1.0); Total Protein 5.3 g/dL (6.4-8.2)
[2020-04-25 19:42] LABS: Basophils # (auto) 0 10 ^3/uL (0-0.2); Eosinophils # (auto) 0.2 10 ^3/uL (0-0.8); Lymphocytes # (auto) 0.3 10 ^3/uL (0.4-5.4); Monocytes # (auto) 0.1 10 ^3/uL (0-1.3); Platelet Count (auto) 174 10^3/uL (140-450)
[2020-04-25 19:44] LABS: Basophils % (auto) 0.3 % (0.0-2.0); Eosinophils % (auto) 3.7 % (0.0-7.0); Hematocrit 26.9 % (41.0-53.0); Hemoglobin 8.9 g/dL (13.5-17.5); Lymphocytes % (auto) 5.4 % (10.0-50.0); Mean Corpuscular Hemoglobin 27.2 pg (28.0-32.0); Mean Corpuscular Hgb Conc. 33.1 g/dL (32.0-36.0); Monocytes % (auto) 2.5 % (0.0-12.0); Neutrophils # (auto) 5.2 10 ^3/uL (1.6-8.6); Neutrophils % (auto) 88.1 % (37.0-80.0); Red Blood Cells 3.28 10^6/uL (4.5-5.90); Red Cell Distribution Width 14.4 % (11.8-14.3); White Blood Cell 5.9 10^3/uL (4.4-10.8)
[2020-04-25 19:47] LABS: INR 1.35 (0.9-1.15); Partial Thromboplastin Time 42.9 sec (23.64-32.05)
--- NOTE | 2020-04-25 19:56 | NUR ---
Endorsed care to KIRILL Smallwood. Patient temp is now 99.3 and sating at 93 on 10L simple mask.
--- NOTE | 2020-04-25 20:30 | NUR ---
Patient no longer with KIRILL Smallwood. Gave report to KIRILL Reno.
[2020-04-25] MEDS: MEROPENEM 1GM IVPB 100 ML IV SCH (20:56)
--- NOTE | 2020-04-25 21:30 | NUR ---
EKG DONE ST 111
--- NOTE | 2020-04-25 21:40 | NUR ---
REPORT REPORT RECEIVED FROM KIRILL STARR
--- NOTE | 2020-04-25 21:50 | NUR ---
Pt being admitted to ICU ABIMAEL PADILLA admitted to ICU via bed on lunchroom monitor, and portable 02. Patient transferred to bed, connected to ICU monitoring and oxygen, and weighed by bed scale. Patient oriented to Fatoumata barber RN, unit, room, bed, and unit policies regarding patient care. All questions and concerns addressed, patient verbalized understanding.
[2020-04-25] MEDS: MUPIROCIN 2% OINT 15gm or 22gm EACHNOSTRI SCH (22:00)
--- NOTE | 2020-04-25 22:00 | NUR ---
OPEN NOTES RECEIVED PATIENT AWAKE AND ALERT. ABLE TO TURN TO SIDES WITHOUT ASSISTANCE. WITH LEFT BKA. ON FACE MASK AY 10L/MIN, SATURATING 100% PATIENT VERBALIZES THAT HE FELT SLIGHTLY BETTER BUT NOTED STILL SOB. COVID RE-TESTED - SWAB WAS SENT EARLIER AT SHIFT CHANGE,AWAITING RESULT WILL DO ISOLATION WHILE RULING OUT PATIENT ON SINUS TACHYCARDIA, BP STABLE WITH ORDERS TO START ON IV HEPARIN DRIP AT 1350UNITS/HR PATIENT SAID HE HAD NO APPETITE EARLIER BUT WANTS SOME JELL-O TONIGHT. SCHUSTER CATHETER IN PLACED WITH YELLOWISH CLEAR OUTPUT FULL ASSESSMENT DONE -REFER INTERVENTIONS WILL CONTINUE TO MONITOR
--- NOTE | 2020-04-25 22:03 | NUR ---
TRANSFER TO ICU RECEIVED ORDERS FROM DR Nakia DO TO ICU FOR ACUTE HYPOXIC RESPIRATORY FAILURE. GIVEN REPORT TO NURSE MOLINA TO RESUME CARE OF PATIENT. ALL BELONGINGS WITH PATIENT TRANSFERED TO ICU ROOM 101 VIA BED PATIENT IN NO APPARENT CARDIAC OR PULMONARY DISTRESS OR COMPLAINTS OF PAIN OR ANY DISCOMFORT ON O2 10L FM.
--- NOTE | 2020-04-25 22:10 | NUR ---
IV removal IV DC'd at left AC with clean sterile technique, catheter fully intact. Pressure dressing applied to site. Patient tolerated well. NOTE: Left AC - occluded
[2020-04-25] MEDS: HEPARIN DRIP/D5W 100UNITS/ML 250 ML IV SCH (22:35)
[2020-04-26] VITALS (69 sets, daily range): BP systolic 86–140; BP diastolic 53–93
[2020-04-26] MEDS: ACCU-CHEK COMFORT CURVE STRIP VI SCH ×6 (00:25→20:45)
[2020-04-26] MEDS: methylPREDNISolone SOD SUCC 40 MG/ML VL IV SCH ×4 (00:27→22:38)
--- NOTE | 2020-04-26 00:27 | NUR ---
BLOOD SUGAR = 57 JUICE GIVEN
--- NOTE | 2020-04-26 01:44 | NUR ---
BLOOD SUGAR RE-CHECKED = 121
--- NOTE | 2020-04-26 02:20 | NUR ---
CALLED LAB TO FOLLOW UP ON COVID TEST RESULT - NOT FINISHED YET
--- NOTE | 2020-04-26 04:06 | NUR ---
PT IS SLEEPING Addendum: 04/26/20 at 0406 by Fatoumata Sargent RN Amended: Links added.
[2020-04-26 04:09] LABS: Basophils # (auto) 0 10 ^3/uL (0-0.2); Eosinophils # (auto) 0 10 ^3/uL (0-0.8); Lymphocytes # (auto) 0.3 10 ^3/uL (0.4-5.4); Monocytes # (auto) 0.1 10 ^3/uL (0-1.3); White Blood Cell 3.9 10^3/uL (4.4-10.8)
[2020-04-26 04:11] LABS: Basophils % (auto) 0.3 % (0.0-2.0); Eosinophils % (auto) 0.6 % (0.0-7.0); Hematocrit 25.7 % (41.0-53.0); Hemoglobin 8.5 g/dL (13.5-17.5); Mean Corpuscular Hemoglobin 27.5 pg (28.0-32.0); Mean Corpuscular Hgb Conc. 33.2 g/dL (32.0-36.0); Monocytes % (auto) 2.2 % (0.0-12.0); Neutrophils # (auto) 3.5 10 ^3/uL (1.6-8.6); Neutrophils % (auto) 88.9 % (37.0-80.0); Platelet Count (auto) 155 10^3/uL (140-450); Red Cell Distribution Width 14.9 % (11.8-14.3)
--- NOTE | 2020-04-26 04:30 | NUR ---
PLACED ON NASAL CANNULA 5L/MIN
[2020-04-26 04:34] LABS: Potassium 3.8 mmol/L (3.5-5.1)
[2020-04-26 04:36] LABS: BUN/Creatinine Ratio 20.6
--- NOTE | 2020-04-26 04:45 | NUR ---
BM PATIENT HAD A MODERATE AMOUNT SOFT BROWNISH STOOL CLEANED PATIENT. PARTIAL LINEN CHANGED DONE
--- NOTE | 2020-04-26 05:00 | NUR ---
CRITICAL PTT RESULT PTT >139 SECS HELD HEPARIN WILL RESUME IN AN HOUR AT 1050UNITS/HR
[2020-04-26 05:02] LABS: INR 1.35 (0.9-1.15)
[2020-04-26 05:07] LABS: Partial Thromboplastin Time > 139.0 sec (23.64-32.05)
[2020-04-26] MEDS: InsuLIN REG 1unit/0.01ml Soln (100units/ml) SC SCH ×6 (05:08→21:28)
--- NOTE | 2020-04-26 05:10 | NUR ---
TEMP UNABLE TO GET ORAL TEMP/AXILLARY TEMP TRIED SEVERAL TIMES COVERED PATIENT WITH WARM BLANKETS INFORMED PATIENT THAT THIS RN NEEDED TO PUT IN A RECTAL PROBE PATIENT AGREED RECTAL TEMP 93F - COVERED WITH SOME MORE WARM BLANKETS, WILL GET A LOLIS HUGGER
--- NOTE | 2020-04-26 06:35 | NUR ---
CALLED PATIENT'S FATHER CALLED PATIENT'S FATHER JB. NO PASSWORD SET UP SO THIS RN ASKED FOR PATIENT'S FULL NAME AND BIRTHDAY BEFORE GIVING ANY INFORMATION. INFORMED JB OF WHAT HAPPENED YESTERDAY NIGHT AND HOW IS THE PATIENT NOW. ALL QUESTIONS ASKED. VERBALIZED UNDERSTANDING.
--- NOTE | 2020-04-26 06:45 | NUR ---
ASKED PATIENT IF THIS RN NEED TO CALL HER SISTER WELL - HE SAID NO NEED BECAUSE SHE WILL CALL THEIR DAD
--- NOTE | 2020-04-26 06:58 | NUR ---
RECTAL TEMP = 93.9F
[2020-04-26] MEDS: IPRATROPIUM BROM 0.5 MG/2.5ML INH SOL NEB PRN (07:05)
[2020-04-26] MEDS: LEVALBUTEROL HCL 1.25 MG/3 ML NEB NEB SCH ×5 (07:05→23:29)
--- NOTE | 2020-04-26 07:30 | NUR ---
REPORT REPORT GIVEN TO KIRILL BHATT
[2020-04-26] MEDS: DOXYCYCLINE 100MG/250ML 250 ML IV SCH ×2 (07:58→19:53)
--- NOTE | 2020-04-26 08:00 | NUR ---
OPENING SHIFT NOTE Received report from [facility] KIRILL Ham. Assumed care of patient. Received patient lying in bed connected to bedside monitor with alarms in place. Patient is A&Ox4, denies pain. Patient is on 5L NC with O2 sats 95%. Patient currently on Heparin drip infusing into right FA #20 PIV at 1050 units/hr and IV abx infusing into other right FA #20. Chicas draining to gravity yellow urine. Warming measures in place. Rectal temp 95.5F. Bed in lowest position, rails x4 up and call light within reach. See full physical assessment. Updated on plan of care. Will continue to monitor.
--- NOTE | 2020-04-26 08:40 | NUR ---
MD Dr Ortiz at bedside to see patient. No new orders received.
--- NOTE | 2020-04-26 09:00 | NUR ---
Paged Dr Nakia Rubio for possible downgrade orders.
--- NOTE | 2020-04-26 09:32 | NUR ---
MD Dr Ye to see patinet. Contreras from pulmonary for patient to be downgraded back to tele. Orders received.
--- NOTE | 2020-04-26 10:09 | NUR ---
assessment Patient is a 54 year old male who is alert and oriented. Patients cognitive abilities are intact. Prior to admission patient lived home with family and functioned with assistance. Per patient he will return home to his prior living arrangements post discharge and family will transport him home. Patient informed me he came to ER for shortness of breath. Patient was admitted to ICU. Patient is on 5L oxygen. Patient will be assessed for home 02 needs prior to discharge. Patient informed me he has a prosthetic leg, fww, and a wheelchair for home use. Patients PCP is Dr Wilder. Patient feels safe returning home on discharge. Patient is on service with [employer]. Patient will need a resumption order on discharge. Patient is requesting information on NA. Patient does not want to talk about why he needs the resources. I will provide resources to patient. I informed patient he has a right to speak to a older adult social work specialist regarding all care. I informed patient he has a right to participate in any and all discharge planning. Patient does not have a POA and advanced directive. I have offered patient information on POA and advanced directives. I informed the patient the advantages and benefits of having an Advanced Directive. Patient verbalized understanding and agreed to discharge plan. Addendum: 04/26/20 at 1012 by Sheridan MAURICIO Amended: Links added.
[2020-04-26 10:13] LABS: Hepatitis B Surface Antigen Negative (Negative)
[2020-04-26] MEDS: INSULIN LANTUS (GLARGINE) 1 /0.01ml (100units/ml) SC SCH (10:40)
[2020-04-26] MEDS: MEROPENEM 1GM IVPB 100 ML IV SCH ×2 (10:40→23:35)
[2020-04-26] MEDS: MUPIROCIN 2% OINT 15gm or 22gm EACHNOSTRI SCH ×2 (10:40→22:37)
[2020-04-26 10:48] LABS: Hepatitis C Antibody Negative (Negative)
--- NOTE | 2020-04-26 11:00 | NUR ---
Paged Dr Nakia Rubio again regarding possible downgrade.
--- NOTE | 2020-04-26 11:05 | NUR ---
I spoke with Dr. Nakia Rubio regarding the plan of care for this patient/transfer to higher level of care. Per Dr. Rubio, patient needs to be transferred for infectious disease consult-he stated patient is stable for transfer. I faxed transfer order/clinical packet to [facility], [facility], [facility] and [facility].
[2020-04-26] MEDS ORDERED: VANCOMYCIN 750mg/250ml 250 ML IV ONE (12:00)
--- NOTE | 2020-04-26 12:08 | NUR ---
Nutrition Assessment Notes Please refer to link for full assessment notes. Est Energy needs: [id number] kcals (23-25 kcal/kgBW) Est Protein needs: 57-64 gms/day (0.8-0.9 gm/kgBW) d/t pt with compromised renal function Will continue to monitor and reassess prn. Addendum: 04/26/20 at [address] Amended: Links added.
[2020-04-26 12:11] LABS: INR 1.29 (0.9-1.15)
--- NOTE | 2020-04-26 12:17 | NUR ---
I spoke with Gaby at the [facility]-provided her with additional clinical information as requested-she said they are at capacity but will look at the case to see if this is a patient that they can accept-she will give me a call back.
[2020-04-26 12:19] LABS: Partial Thromboplastin Time 74.4 sec (23.64-32.05)
--- NOTE | 2020-04-26 12:30 | NUR ---
PTT 74.4. Per Heparin gtt protocol, no change to rate. New labs at 1700.
--- NOTE | 2020-04-26 12:35 | NUR ---
I received a call from Malka at [facility] letting me know that they can not accept patient at this time because they are at capacity.
--- NOTE | 2020-04-26 14:18 | NUR ---
Patient resting in bed. Rectal temp 97.5 F. Warming pad and blankets removed. Will continue to monitor.
--- NOTE | 2020-04-26 16:00 | NUR ---
Patient resting in bed, complaining of feeling cold again. Rectal temp 96.4 F. Covered patient back up with warming pad and warm blankets. Will continue to monitor.
--- NOTE | 2020-04-26 16:45 | NUR ---
MD Dr Nakia Rubio at bedside to see patient. Orders received for downgrade to tele tonight after 1899.
[2020-04-26] MEDS: HEPARIN DRIP/D5W 100UNITS/ML 250 ML IV SCH (17:30)
--- NOTE | 2020-04-26 18:00 | NUR ---
Report given to Sj ROY. Patient to be transferred to [address] via bed. Shahram, Meat Cutter notified to bring bed. Placed patient on tele box 36.
--- NOTE | 2020-04-26 18:15 | NUR ---
Patient transferred to [address] via bed on tele box 36 and oxygen with all personal belongings.
--- NOTE | 2020-04-26 18:43 | NUR ---
Patient Received The patient arrived to the floor as a transfer from the ICU at 1815hrs. The patient is stable, in good spirits, no complaints. Completed my assessment, the patient is breathing without difficulty, lungs clear but diminished. He stated he prefers to lie flat but was sat up to eat dinner. Restarted the Heparin drip at 1050u/10.5ml/hr. Will continue to monitor.
--- NOTE | 2020-04-26 19:25 | NUR ---
Received pt. in bed resting, sleeping, awakens, oriented x 3-4 , on 3L/NC with mild sob, breathing regular and even, lungs are diminished, pt. on bedrest, looks weak but able to turn self and follows commands. Pt. denies chest pain, on Tele # 36, SR @ the 80's to 90's, @ times ST @ the low 100's. Pt. on Heparin drip which was started 0n 04/24/20. Pt. came from ICU and just transferred here @ around 1815 Pm. Pt. with Heparin gtt @ 1050 units/hr. which is 10.5 ml./hr. connected to the Top part of the RFA or top of the wrist area G # 20. APTT was drawn earlier @ 1907 Pm, melvi check labs. result of Coagulation or APTT within -2 hr. from now. Pt. is monitored for blood sugar level every 4 hrs. Pt. had VQ Scan today and were unable to R/O (Rule Out P.E. -Pulmonary Embolism). This Heparin gtt. was started by the ICU last 04/24/20 Pt. Heparin gtt. was started last 04/24/20 @ the ICU unit. Generally skin intact, pt. able to turn self and is independent with ADL's. Pt. on Tele Box # 36, SR to ST from 80' to 90's to low 100's. Pt. with F/C placed for immobility. Assessment done and completed. Keep pt. safe , clean, dry, and comfortable in bed.
--- NOTE | 2020-04-26 20:00 | NUR ---
APTT result which was taken 1907 Pm tonight is 55.3. This result was referred to the Heparin protocol of the Hospital. As per Heparin result, there's no need to give bolus and no need to change the rate. Heparin is running @ 1050 units/hr. which is equivalent to 10.5 mls./hr. Next APTT will be @ around 0100 AM and is ordered already in the [facility]. shot bagger of the Floor Ela made aware of the result. Keep pt. safe, clean and comfortable in bed.
[2020-04-26 20:24] LABS: INR 1.28 (0.9-1.15); Partial Thromboplastin Time 55.3 sec (23.64-32.05)
--- NOTE | 2020-04-26 20:43 | NUR ---
Accucheck taken @ 2042 is = 436 , will repeat the test.
--- NOTE | 2020-04-26 20:45 | NUR ---
Accucheck test repeated @ 2044 and the result is 539. Pt. given Insulin coverage per Doctor's orders.
[2020-04-26] MEDS ORDERED: INSULIN LANTUS (GLARGINE) 1 /0.01ml (100units/ml) SC SCH (22:00)
--- NOTE | 2020-04-26 22:00 | NUR ---
Called [facility] covering MD hunt awaiting return call.
[2020-04-26] MEDS ORDERED: DEXTROSE (50%) 50ML SYRG IV PRN (23:00)
--- NOTE | 2020-04-26 23:00 | NUR ---
Ching Ventura , covering MD for [facility] returned call, notified MD. of pt.'s high blood sugar results. Dr. Boyd gave new orders for Insulin. Orders noted and carried out.
[2020-04-26] MEDS ORDERED: INSULIN LANTUS (GLARGINE) 1 /0.01ml (100units/ml) SC ONE (23:15)
[2020-04-27] MEDS: ACCU-CHEK COMFORT CURVE STRIP VI SCH ×9 (01:02→20:12)
[2020-04-27] MEDS: InsuLIN REG 1unit/0.01ml Soln (100units/ml) SC SCH ×6 (01:12→20:18)
--- NOTE | 2020-04-27 01:20 | NUR ---
APTT was drawn @ this time. Awaiting result.
[2020-04-27 02:11] LABS: INR 1.3 (0.9-1.15); Partial Thromboplastin Time 66.8 sec (23.64-32.05)
--- NOTE | 2020-04-27 02:30 | NUR ---
APTT result which was drawn @ 0120 Am is 66.8 , Per Heparin Protocol @ the [facility] , No Bolus and No change. Heparin drip/gtt still @ the same rate of 10.5 mls./hr. or @ 1050 units/hr. continuous. This is the third (3rd) time, results was therapeutic and then APTT will be drawn Q Daily @ 0100 AM. Will follow this and will inform the next shift KIRILL.
[2020-04-27 05:00] VITALS: BP 137/86
[2020-04-27] MEDS: methylPREDNISolone SOD SUCC 40 MG/ML VL IV SCH ×3 (06:40→22:14)
[2020-04-27] MEDS: DOXYCYCLINE 100MG/250ML 250 ML IV SCH ×2 (06:53→18:18)
[2020-04-27] MEDS: INSULIN LANTUS (GLARGINE) 1 /0.01ml (100units/ml) SC SCH ×2 (06:54→22:00)
[2020-04-27] MEDS: LEVALBUTEROL HCL 1.25 MG/3 ML NEB NEB SCH ×3 (07:27→19:01)
[2020-04-27] MEDS: IPRATROPIUM BROM 0.5 MG/2.5ML INH SOL NEB PRN ×2 (07:27→19:01)
[2020-04-27 08:00] VITALS: BP 125/80
[2020-04-27 08:43] LABS: Basophils # (auto) 0 10 ^3/uL (0-0.2); Eosinophils # (auto) 0 10 ^3/uL (0-0.8); Lymphocytes # (auto) 0.2 10 ^3/uL (0.4-5.4); Lymphocytes % (auto) 3.7 % (10.0-50.0); Monocytes # (auto) 0.1 10 ^3/uL (0-1.3); Monocytes % (auto) 1.9 % (0.0-12.0); Neutrophils % (auto) 94.1 % (37.0-80.0); White Blood Cell 4.2 10^3/uL (4.4-10.8)
[2020-04-27] MEDS: HEPARIN DRIP/D5W 100UNITS/ML 250 ML IV SCH (08:49)
[2020-04-27 08:50] LABS: Eosinophils % (auto) 0.3 % (0.0-7.0); Hematocrit 24.6 % (41.0-53.0); Hemoglobin 8.2 g/dL (13.5-17.5); Mean Corpuscular Hemoglobin 27.2 pg (28.0-32.0); Mean Corpuscular Hgb Conc. 33.5 g/dL (32.0-36.0); Mean Corpuscular Volume 81.3 fL (80.0-100.0); Platelet Count (auto) 186 10^3/uL (140-450); Red Blood Cells 3.03 10^6/uL (4.5-5.90); Red Cell Distribution Width 14.9 % (11.8-14.3)
[2020-04-27 08:57] LABS: Calcium 7.1 mg/dL (8.5-10.1); Potassium 3.8 mmol/L (3.5-5.1)
[2020-04-27 09:03] LABS: Albumin 1.1 g/dL (3.4-5.0); BUN/Creatinine Ratio 22.1; Bilirubin, Total 0.3 mg/dL (0.2-1.0); Total Protein 5.5 g/dL (6.4-8.2)
[2020-04-27 09:05] LABS: Ferritin > 1650.0 ng/mL (10-322)
[2020-04-27 09:19] LABS: % Iron Saturation 53.8 % (20-55)
--- NOTE | 2020-04-27 09:50 | NUR ---
I called [facility] [phone] and spoke with Niecy-she said they are at capacity and can not accept patient at this time.
--- NOTE | 2020-04-27 09:54 | NUR ---
I called [facility] ([facility])[phone] and spoke with Steffi, she will find out if this is a patient they can accept and will give me a call back.
--- NOTE | 2020-04-27 09:56 | NUR ---
I called [facility] Transfer Center-they remain at capacity and can not accept this patient at this time.
[2020-04-27] MEDS: FAMOTIDINE (10MG/ML) 2ML VL IV SCH (10:33)
[2020-04-27] MEDS: MEROPENEM 1GM IVPB 100 ML IV SCH ×2 (10:33→22:14)
[2020-04-27] MEDS: MUPIROCIN 2% OINT 15gm or 22gm EACHNOSTRI SCH ×2 (10:34→22:15)
--- NOTE | 2020-04-27 11:55 | NUR ---
I received a message from [facility] letting me know that they can not accept this patient for transfer. I attempted to call them back-was unable to get through.
--- NOTE | 2020-04-27 12:03 | NUR ---
I called [facility], they have no beds available at this time.
--- NOTE | 2020-04-27 12:45 | NUR ---
Respiratory note: PT MISSED 1200 MED NEB. PT WAS NOT IN ROOM AND AT A PROCEDURE. RN INFORMED.
--- NOTE | 2020-04-27 14:00 | NUR ---
IV insertion IV access obtained, via clean sterile technique by inserting 20 gauge catheter at left AC after one attempt. IV secured properly. No trauma to site. Patient tolerated well.
--- NOTE | 2020-04-27 14:31 | NUR ---
I called [facility] [phone] and spoke with Matt, provided him with requested clinical information, he will call me back to let me know if they can accept this patient.
--- NOTE | 2020-04-27 14:49 | NUR ---
I spoke with Dr. Nakia Rubio to update him on the status of the transfer.
--- NOTE | 2020-04-27 15:08 | NUR ---
I received a call from Matt at [facility] requesting clinical information to be faxed. Faxed requested information-he will review it and give me a call back.
--- NOTE | 2020-04-27 15:16 | NUR ---
LEFT MESSAGE WITH DR. Nakia ISSA REGARDING PATIENT NAUSEA AND VOMITING. AWAITING RETURN CALL.
--- NOTE | 2020-04-27 16:04 | NUR ---
Spoke with patient regarding his living situation. He states he lives with his dad and his living situation is adequate. He states he just needs oxygen to go home with. Spoke with Dr. Nakia Rubio he ordered ABG , building services engineer consult and promethazine PRN for N/V
[2020-04-27] MEDS: PROMETHAZINE HCL 25 MG/ML 1ML IV PRN (16:26)
[2020-04-27 17:00] VITALS: BP 132/55
--- NOTE | 2020-04-27 17:53 | NUR ---
ADAM FROM CALLED REGARDING PATIENTS HOME OXYGEN. SHE STATED THEY WILL DELIVER OXYGEN TO PATIENTS HOME TOMORROW.
--- NOTE | 2020-04-27 18:55 | NUR ---
RT NOTE PT WAS SEEN BY RT FOR HHN TX. PT TOLERATES WELL VIA MASK. NO ADVERSE REACTION NOTED. CONT ORDERED Addendum: 04/27/20 at 1932 by Carlee Hartmann RT Amended: Links added.
--- NOTE | 2020-04-27 20:00 | NUR ---
Opening Shift Note Assumed care of patient, awake, AAOx4. No S/S of distress/SOB or pain. On 3L oxygen via nasal cannula. Patient on bedrest. Chicas catheter patent and draining to gravity. Heparin drip running at 10.5 ml/hr. Bed in lowest locked position, side rails up x2, call light within reach. Instructed on POC and to call for assist PRN, will continue to monitor for changes Q1hr and PRN.
[2020-04-27 22:00] VITALS: BP 135/75
[2020-04-27] MEDS: AZITHROMYCIN 250 MG TAB PO SCH (22:45)
[2020-04-28] MEDS: IPRATROPIUM BROM 0.5 MG/2.5ML INH SOL NEB PRN (00:24)
[2020-04-28] MEDS: LEVALBUTEROL HCL 1.25 MG/3 ML NEB NEB SCH ×4 (00:24→12:26)
--- NOTE | 2020-04-28 00:38 | NUR ---
RT NOTE PT WAS SEEN BY RT FOR HHN TX. PT IS SLEEPING BUT EASILY AWAKENED. PT STATES HE WANTS TO WAIT UNTIL MORNING FOR HIS NEXT TX. NO SOB OR DISTRESS NOTED. HR 101, RR 20, BS CLEAR/DIM, POX 98% ON 3L NASAL CANNULA. KIRILL BAKER NOTIFIED AND WILL CALL IF TX NEEDED BEFORE NEXT SCHEDULED TIME. CONT ORDERED Addendum: 04/28/20 at 0102 by Carlee Hartmann RT Amended: Links added.
[2020-04-28] MEDS: HEPARIN DRIP/D5W 100UNITS/ML 250 ML IV SCH (02:04)
[2020-04-28] MEDS: ACCU-CHEK COMFORT CURVE STRIP VI SCH ×6 (04:00→20:00)
[2020-04-28] MEDS: InsuLIN REG 1unit/0.01ml Soln (100units/ml) SC SCH ×6 (04:00→20:00)
[2020-04-28 05:00] VITALS: BP 139/78
--- NOTE | 2020-04-28 05:38 | NUR ---
PATIENT HAD LARGE BM. PATIENT CLEANED AND SOILED LINENS CHANGED. PATIENT CLEAN AND DRY, RESTING IN BED.
[2020-04-28] MEDS: methylPREDNISolone SOD SUCC 40 MG/ML VL IV SCH ×3 (06:42→21:15)
[2020-04-28] MEDS: INSULIN LANTUS (GLARGINE) 1 /0.01ml (100units/ml) SC SCH ×2 (06:44→22:00)
[2020-04-28 08:24] VITALS: BP 100/60
[2020-04-28] MEDS: MUPIROCIN 2% OINT 15gm or 22gm EACHNOSTRI SCH ×2 (08:40→21:40)
[2020-04-28] MEDS: AZITHROMYCIN 250 MG TAB PO SCH (08:40)
[2020-04-28] MEDS: DOXYCYCLINE 100MG/250ML 250 ML IV SCH (08:40)
[2020-04-28 08:48] LABS: Basophils # (auto) 0 10 ^3/uL (0-0.2); Basophils % (auto) 0.4 % (0.0-2.0); Eosinophils # (auto) 0 10 ^3/uL (0-0.8); Eosinophils % (auto) 0.3 % (0.0-7.0); Hematocrit 25.5 % (41.0-53.0); Hemoglobin 8.5 g/dL (13.5-17.5); Lymphocytes # (auto) 0.1 10 ^3/uL (0.4-5.4); Lymphocytes % (auto) 2.2 % (10.0-50.0); Mean Corpuscular Hemoglobin 26.8 pg (28.0-32.0); Mean Corpuscular Hgb Conc. 33.3 g/dL (32.0-36.0); Mean Corpuscular Volume 80.5 fL (80.0-100.0); Monocytes # (auto) 0.1 10 ^3/uL (0-1.3); Monocytes % (auto) 1.3 % (0.0-12.0); Neutrophils # (auto) 3.8 10 ^3/uL (1.6-8.6); Neutrophils % (auto) 95.8 % (37.0-80.0); Nucleated Red Blood Cells % 0.4 %; Platelet Count (auto) 90 10^3/uL (140-450); Red Blood Cells 3.16 10^6/uL (4.5-5.90); Red Cell Distribution Width 14.8 % (11.8-14.3)
[2020-04-28 09:23] LABS: Anion Gap 14 (5-15); BUN/Creatinine Ratio 22.5; Blood Urea Nitrogen 60 mg/dL (7-18); Carbon Dioxide 17 mmol/L (21-32); Chloride 105 mmol/L (98-107); GFR African American 32 mL/min; GFR Non-African American 27 mL/min; Glucose 252 mg/dL (74-106); Potassium 3.5 mmol/L (3.5-5.1); Sodium 136 mmol/L (136-145)
[2020-04-28 09:24] LABS: Calcium 7.1 mg/dL (8.5-10.1)
--- NOTE | 2020-04-28 09:54 | NUR ---
Left message with Dr. Nakia Rubio regarding patient platelets regarding Heparin drip. Awaiting return call.
[2020-04-28] MEDS ORDERED: VANCOMYCIN 750mg/250ml 250 ML IV ONE (12:00)
[2020-04-28] MEDS: MEROPENEM 1GM IVPB 100 ML IV SCH (12:15)
[2020-04-28 13:00] VITALS: BP 138/92
--- NOTE | 2020-04-28 14:15 | NUR ---
DR. ISSA AT BEDSIDE WITH PATIENT TO DISCUSS PLAN OF CARE. INFORMED PATIENT OF STATUS OF HIV TEST. CALLED LAB AND ORDERED HEPARIN INDUCED THROMBOCYTOPENIA TEST REQUESTED BY DR. ISSA. PATIENT VERBALIZED UNDERSTANDING OF STATUS AND CURRENT PLAN OF CARE.
[2020-04-28 14:38] LABS: INR 1.24 (0.9-1.15)
[2020-04-28 14:42] LABS: Partial Thromboplastin Time 76.7 sec (23.64-32.05)
--- NOTE | 2020-04-28 15:22 | NUR ---
CALLED AND LEFT MESSAGE WITH DR. ACOSTA REQUESTED BY DR. Nakia ISSA REGARDING PATIENT DECREASED PLATELETS. AWAITING RETURN CALL
--- NOTE | 2020-04-28 15:44 | NUR ---
MUKUL WICK NP IS LAMP WIRER FOR DR. ACOSTA AND SHE WAS NOTIFIED OF PATIENTS LOW PLATELET COUNT AND THAT THE HEPARIN DRIP WAS STOPPED AND A HIT PANEL WAS ORDERED. NO NEW ORDERS WERE RECEIVED AT THIS TIME.
[2020-04-28 16:58] VITALS: BP 145/87
--- NOTE | 2020-04-28 17:07 | NUR ---
CALLED AND SPOKE WITH DR. Ayesha CRUZ REGARDING THE ORTHO CONSULT FOR PATIENT T8 VERTEBRAL COMPRESSION FRACTURE, DR STATED HE WILL SEE PATIENT IN THE MORNING.
--- NOTE | 2020-04-28 19:31 | NUR ---
Respiratory note: ASSESSED PT FOR PRN MED NEB AT THIS TIME, PT DENIES SOB AT THIS TIME, NO RESP DISTRESS NOTED, NO TX INDICATED. PULSE OX 93% ON 3L, HR 106, RR 20, BILATERAL BS CLEAR.
[2020-04-28 20:00] VITALS: BP 113/73
[2020-04-28 22:00] VITALS: BP 143/74
[2020-04-29 00:11] VITALS: BP 143/74
[2020-04-29] MEDS: MEROPENEM 1GM IVPB 100 ML IV SCH ×3 (00:11→23:12)
[2020-04-29] MEDS: ACCU-CHEK COMFORT CURVE STRIP VI SCH ×6 (04:00→20:00)
[2020-04-29] MEDS: InsuLIN REG 1unit/0.01ml Soln (100units/ml) SC SCH ×6 (04:00→20:00)
[2020-04-29] MEDS: methylPREDNISolone SOD SUCC 40 MG/ML VL IV SCH ×3 (05:37→22:41)
--- NOTE | 2020-04-29 05:40 | NUR ---
PT HAD LARGE BM IN THE BED;CLEANED. PT ABLE TO TURN SELF WELL.CALL LIGHT IN REACH;DENIES PAIN.
[2020-04-29 06:00] VITALS: BP 134/68
[2020-04-29] MEDS: INSULIN LANTUS (GLARGINE) 1 /0.01ml (100units/ml) SC SCH ×2 (06:33→22:19)
[2020-04-29] MEDS: LEVALBUTEROL HCL 1.25 MG/3 ML NEB NEB SCH ×3 (06:40→18:00)
[2020-04-29 06:41] LABS: Mean Corpuscular Hemoglobin 27.1 pg (28.0-32.0); Mean Corpuscular Hgb Conc. 33.3 g/dL (32.0-36.0); Platelet Count (auto) 55 10^3/uL (140-450)
[2020-04-29] MEDS: ACETAMINOPHEN 500 MG TAB PO PRN (06:41)
[2020-04-29 06:44] LABS: Hematocrit 22.6 % (41.0-53.0); Hemoglobin 7.5 g/dL (13.5-17.5); Mean Corpuscular Volume 81.4 fL (80.0-100.0); Red Blood Cells 2.78 10^6/uL (4.5-5.90); Red Cell Distribution Width 14.9 % (11.8-14.3); White Blood Cell 2.4 10^3/uL (4.4-10.8)
[2020-04-29 06:50] LABS: Basophils % (manual) 0 (0.0-2.0); Blast Cells 0; Metamyelocytes % 0; Myelocytes % 0; Promyelocytes % 0; Reactive Lymphocytes 0
[2020-04-29 07:27] LABS: Albumin 1.1 g/dL (3.4-5.0); BUN/Creatinine Ratio 24.1; Calcium 7.3 mg/dL (8.5-10.1); Potassium 3.4 mmol/L (3.5-5.1)
[2020-04-29 07:30] LABS: Bilirubin, Total 0.5 mg/dL (0.2-1.0); Total Protein 4.9 g/dL (6.4-8.2)
[2020-04-29 08:15] LABS: Band Neutrophils % (manual) 17; Eosinophils % (manual) 1 (0-7); Lymphocytes % (manual) 1 (10.0-50.0); Monocytes % (manual) 2 (0-12)
[2020-04-29 09:00] VITALS: BP 147/90
[2020-04-29] MEDS: MUPIROCIN 2% OINT 15gm or 22gm EACHNOSTRI SCH ×2 (09:37→22:41)
[2020-04-29] MEDS: AZITHROMYCIN 250 MG TAB PO SCH (09:37)
[2020-04-29] MEDS: FAMOTIDINE (10MG/ML) 2ML VL IV SCH (09:37)
[2020-04-29 12:04] LABS: Hematocrit 23.3 % (41.0-53.0); Hemoglobin 7.6 g/dL (13.5-17.5); Mean Corpuscular Hemoglobin 26.8 pg (28.0-32.0); Platelet Count (auto) 52 10^3/uL (140-450); Red Cell Distribution Width 14.7 % (11.8-14.3); White Blood Cell 2.6 10^3/uL (4.4-10.8)
[2020-04-29 12:06] LABS: Mean Corpuscular Hgb Conc. 32.7 g/dL (32.0-36.0); Red Blood Cells 2.84 10^6/uL (4.5-5.90)
[2020-04-29 12:12] LABS: Basophils % (manual) 0 (0.0-2.0); Blast Cells 0; Metamyelocytes % 0; Myelocytes % 0; Promyelocytes % 0; Reactive Lymphocytes 0
[2020-04-29] MEDS ORDERED: FONDAPARINUX SODIUM 7.5 MG/0.6 ML INJ SC SCH ×2 (12:15→22:30)
[2020-04-29 12:21] LABS: Calcium 7.5 mg/dL (8.5-10.1); Potassium 3.6 mmol/L (3.5-5.1)
[2020-04-29 12:23] LABS: BUN/Creatinine Ratio 25.6; Bilirubin, Total 0.4 mg/dL (0.2-1.0); Total Protein 5.1 g/dL (6.4-8.2)
[2020-04-29 12:26] LABS: % Iron Saturation 17.7 % (20-55)
[2020-04-29 12:32] LABS: Ferritin > 1650.0 ng/mL (10-322)
--- NOTE | 2020-04-29 12:45 | NUR ---
Respiratory note: PT REFUSED SCHEDULE [place] TX AT THIS TIME. NO DISTRESS NOTED.
[2020-04-29 12:50] LABS: Band Neutrophils % (manual) 16; Eosinophils % (manual) 1 (0-7); Lymphocytes % (manual) 6 (10.0-50.0); Monocytes % (manual) 10 (0-12)
[2020-04-29 13:00] VITALS: BP 130/85
--- NOTE | 2020-04-29 14:15 | NUR ---
[facility] Hospitalist Dr. Josafat Rubio paged regarding new medication (Fondaparinux) ordered by Chrissy French PAC. As per pharmacist medication is contraindicated due to patient's CRCL at 29. Unable to reach Chrissy French. Awaiting call back from hospitalist.
[2020-04-29 16:26] VITALS: BP 124/77
--- NOTE | 2020-04-29 18:20 | NUR ---
Paged Hospitalist Dr. Di Rubio paged regarding new medication (Fondaparinux) ordered by Chrissy French PAC. As per pharmacist medication is contraindicated due to patient's CRCL at 29. Unable to reach Chrissy French. Awaiting return call from Dr. Di Rubio.
--- NOTE | 2020-04-29 18:50 | NUR ---
Hospitalist returned call Received call back from Dr. Rubio. He did not order medication and would prefer RN to go up the hospital's chain of command to reach MD ordering medication.
--- NOTE | 2020-04-29 19:06 | NUR ---
PT SEEN FOR SCHEDULED NEB. TX HELD AT THIS TIME DUE TO ELEVATED HR. >155. RN PINKY IS AWARE. HR 162 RR 24 POX 90% 15L OXYMIZER. WILL RECHECK AT NEXT SCHEDULED TX.
--- NOTE | 2020-04-29 20:45 | NUR ---
Pt heart rate 166 pt agitated nor feeling well Called doctor Maureen
--- NOTE | 2020-04-29 21:00 | NUR ---
Received and implemented order from doctor Reddy Stat EKG Pottassium and Magnesium level and cardiology consult by doctor Arreguin
--- NOTE | 2020-04-29 21:15 | NUR ---
Called doctor Maureen with the EKG result. Per doctor Swain EKG should be repeated by the charge nurse. Charge nurse aware.
--- NOTE | 2020-04-29 21:45 | NUR ---
CALLED DR. HAYWARD RE:EKG RESULT, PER MD TO ORDER ABG STAT AND NOTIFY DR. BENJAMIN RE: RESULT IF UNABLE TO REACH SALES SUPPORT REPRESENTATIVE CALL DR. HAYWARD AGAIN.
[2020-04-29 22:00] VITALS: BP 148/95
--- NOTE | 2020-04-29 22:10 | NUR ---
Spoke with doctor Ortiz regarding medication held by Pharm[facility]. Per doctor Ortiz patient can have the medication.
[2020-04-29 22:29] LABS: Magnesium 1.7 mg/dL (1.6-2.6); Potassium 3.7 mmol/L (3.5-5.1)
[2020-04-30] MEDS: ACCU-CHEK COMFORT CURVE STRIP VI SCH ×7 (00:52→23:25)
[2020-04-30] MEDS: InsuLIN REG 1unit/0.01ml Soln (100units/ml) SC SCH ×7 (00:53→23:25)
[2020-04-30 05:41] VITALS: BP 122/71
[2020-04-30] MEDS ORDERED: METOPROLOL TARTRATE 1MG/1ML-5ML VIAL IV PRN (05:45)
[2020-04-30] MEDS: INSULIN LANTUS (GLARGINE) 1 /0.01ml (100units/ml) SC SCH ×2 (06:31→22:50)
[2020-04-30] MEDS: LEVALBUTEROL HCL 1.25 MG/3 ML NEB NEB SCH ×3 (06:40→18:16)
[2020-04-30] MEDS: MAGNESIUM SULFATE 1GM/100ML 100 ML IV SCH ×2 (06:59→10:26)
--- NOTE | 2020-04-30 07:30 | NUR ---
RECEIVED REPORT FROM NIGHT NURSE. PATIENT RESTING IN BED, NO DISTRESS NOTED. OXYMIZER AT 11L. WILL CONTINUE TO MONITOR.
[2020-04-30] MEDS: FERROUS SULFATE 325 MG TAB PO SCH ×3 (08:56→17:11)
[2020-04-30 09:00] VITALS: BP 129/76
--- NOTE | 2020-04-30 09:23 | NUR ---
Attempted PT eval. Pt declined and requested I return this afternoon because he would like to sleep.
--- NOTE | 2020-04-30 09:26 | NUR ---
PLACED CALL TO DOCTOR DAVE'S OFFICE AND LEFT MESSAGE FOR DELANO GILMAN FOR MEDICATION CLARIFICATION THAT WAS ORDERED OVER THE WEEKEND.
[2020-04-30 09:29] LABS: Folate (Folic Acid) 4.85 ng/mL (5.38-24)
[2020-04-30] MEDS ORDERED: FONDAPARINUX SODIUM 7.5 MG/0.6 ML INJ SC SCH (10:00)
[2020-04-30] MEDS: MUPIROCIN 2% OINT 15gm or 22gm EACHNOSTRI SCH ×2 (10:00→21:42)
[2020-04-30] MEDS ORDERED: METOPROLOL TARTRATE 25 MG TAB PO SCH (10:00)
[2020-04-30] MEDS: methylPREDNISolone SOD SUCC 40 MG/ML VL IV SCH ×2 (10:24→21:42)
[2020-04-30 11:21] LABS: Hematocrit 24.4 % (41.0-53.0); Hemoglobin 7.8 g/dL (13.5-17.5); Red Blood Cells 2.96 10^6/uL (4.5-5.90)
[2020-04-30 11:23] LABS: Mean Corpuscular Hemoglobin 26.5 pg (28.0-32.0); Mean Corpuscular Hgb Conc. 32.1 g/dL (32.0-36.0); Mean Corpuscular Volume 82.4 fL (80.0-100.0); Platelet Count (auto) 37 10^3/uL (140-450); Red Cell Distribution Width 14.8 % (11.8-14.3)
[2020-04-30 11:25] LABS: White Blood Cell 1.9 10^3/uL (4.4-10.8)
[2020-04-30 11:27] LABS: Basophils % (manual) 0 (0.0-2.0); Blast Cells 0; Myelocytes % 0; Promyelocytes % 0; Reactive Lymphocytes 0
--- NOTE | 2020-04-30 11:30 | NUR ---
CIVIL ENGINEERING DESIGN DRAFTSPERSON AT BEDSIDE.
--- NOTE | 2020-04-30 11:35 | NUR ---
Nutrition Followup Notes Wt: 68.1 kg Pt was with PT when rounded this am. per records pt with improving COPD. pt is currently on CCHO 60 gm fine chop diet with adequate PO of 75% x 4 per RN doc. F/u mod 3-5 days Est Energy needs: 9521-8388 kcals (23-25 kcal/kgBW), Est Protein needs: 57-64 gms/day (0.8-0.9 gm/kgBW) d/t pt with compromised renal function. Will continue to monitor and reassess prn. LABS: POC GLU 151 H. rest lab wnl GI: Pt had 1 BM today per RN doc BS: 19 low risk. Refer to wound assessment report for full details. PES: 1) Obesity aeb 156% IBW and BMI of 30.6 kg/m2 r/t energy intake in excess of energy needs 2) Altered nutrition related lab values aeb elev RFTs, low GFR, hypocalcemia, severe hypoalbuminemia r/t current/chronic medical condition Comments 1) Continue to closely monitor pt PO intake to meet at least 75% of meals. 2) Suggest a Renal Specific 60gProtein,2gNa,K2/CCHO 60g diet. 3) Continue current plan of care
[2020-04-30 11:38] LABS: Calcium 7.5 mg/dL (8.5-10.1); Potassium 3.7 mmol/L (3.5-5.1)
[2020-04-30 11:42] LABS: BUN/Creatinine Ratio 24.9; Bilirubin, Total 0.6 mg/dL (0.2-1.0); Total Protein 4.8 g/dL (6.4-8.2)
--- NOTE | 2020-04-30 12:00 | NUR ---
D/C planning Regarding social service consult for SNF placement for IV abx and physical therapy. Spoke to Froylan Capone regarding patient oxygen level. Per Froylan Rock patient is not stable to transfer to a [facility] nursing facility and will keep patient and re-evaluate him.
[2020-04-30] MEDS: MEROPENEM 1GM IVPB 100 ML IV SCH ×2 (12:04→21:42)
[2020-04-30 12:18] LABS: Band Neutrophils % (manual) 22; Eosinophils % (manual) 6 (0-7); Lymphocytes % (manual) 3 (10.0-50.0); Metamyelocytes % 1; Monocytes % (manual) 2 (0-12)
--- NOTE | 2020-04-30 12:23 | NUR ---
Midline Placement: Patient educated on need for midline placement. All risks and benefits explained and all questions and concerns addresses prior to procedure. 18g/10cm midline inserted via left brachial vein using Ultrasound. Sterile technique utilized. Blood return obtained from lumen and flushed easily with NS using proper technique. Midline secured with saline lock; biodisc and occlusive dressing applied. Anuja ROY notified.
[2020-04-30 12:42] VITALS: BP 144/84
--- NOTE | 2020-04-30 13:41 | NUR ---
DOCTOR VICENTE AT BEDSIDE.
--- NOTE | 2020-04-30 13:41 | NUR ---
SPOKE WITH LAB, THE SEND OUT LAB RESULTS, SHOULD BE HERE AND AVAILABLE ON 05/02/20.
--- NOTE | 2020-04-30 14:10 | NUR ---
O2 SAT PATIENT LOWERED FROM 11L OXYMIZER TO 7L OXYMI[address] BY DR. Di ISSA, PATIENT O2 SAT 86%. OXYGEN INCREASED TO 9L OXYMIZER, O2 SAT 91%. WILL CONTINUE TO MONITOR AND TAPER O2 TOLERATED WITH O2 SAT >90%.
--- NOTE | 2020-04-30 14:43 | NUR ---
PT AT BEDSIDE. PATIENT UP TO A CHAIR.
[2020-04-30] MEDS ORDERED: VANCOMYCIN 500 MG in D5W 5% 100 ML IV ONE (16:00)
[2020-04-30 17:00] VITALS: BP 127/77
[2020-04-30] MEDS: FOLIC ACID 1 MG TAB PO SCH (17:10)
[2020-04-30] MEDS: ACETAMINOPHEN 500 MG TAB PO PRN (17:11)
--- NOTE | 2020-04-30 17:11 | NUR ---
TEMPERATURE 100.5, COOLING MEASURES STARTED. BLANKETS REMOVED, ICE PACKS GIVEN. PRN TYLENOL GIVEN. WILL CONTINUE TO MONITOR.
[2020-04-30] MEDS: PROMETHAZINE HCL 25 MG/ML 1ML IV PRN (18:06)
--- NOTE | 2020-04-30 18:07 | NUR ---
TEMPERATURE RE-CHECK 98.8, PATIENT RESTING IN BED. WILL CONTINUE TO MONITOR.
[2020-04-30] MEDS: IPRATROPIUM BROM 0.5 MG/2.5ML INH SOL NEB PRN (18:16)
--- NOTE | 2020-04-30 19:18 | NUR ---
PATIENT CARE ENDORSED TO NIGHT NURSE. PATIENT STABLE AT THIS TIME.
--- NOTE | 2020-04-30 19:47 | NUR ---
RECEIVED PATIENT FROM DAY SHIFT RN. PATIENT RESTING IN BED. NO S/S OF DISTRESS NOTED. DENIED PAIN FOR NOW. PATIENT HAD BM. CLEANED PATIENT, TOTAL LINEN AND PATIENT GOWN CHANGED. PATIENT TOLERATED WELL. PATIENT IS ON 9L/OXYMIZER WITH O2 SAT 90%. POC INSTRUCTED AND ENCOURAGED PATIENT TO CALL FOR VENDETTE IF NEEDED. BED IN LOWEST POSITION WITH SIDE RAILS UP X 2. CALL ZHANG WITHIN REACH. ALARM ON. CONTINUE TO MONITOR FOR CHANGES Q1H AND PRN.
--- NOTE | 2020-04-30 19:51 | NUR ---
ACCU-CHECK, BS 125. NO COVERAGE. CONTINUE TO MONITOR.
--- NOTE | 2020-04-30 21:38 | NUR ---
PATIENT IS ON 9L/OXYMIZER WITH O2 SAT 95%. CONTINUE TO MONITOR.
[2020-04-30] MEDS: METOPROLOL TARTRATE 50 MG TAB PO SCH (21:43)
[2020-04-30 22:00] VITALS: BP 117/73
--- NOTE | 2020-04-30 23:26 | NUR ---
ACCU-CHECK, BS 110. NO COVERAGE. CONTINUE TO MONITOR.
[2020-05-01] VITALS (56 sets, daily range): BP systolic 58–200; BP diastolic 19–110
[2020-05-01] MEDS: IPRATROPIUM BROM 0.5 MG/2.5ML INH SOL NEB PRN ×3 (01:03→11:20)
[2020-05-01] MEDS: LEVALBUTEROL HCL 1.25 MG/3 ML NEB NEB SCH ×4 (01:03→18:21)
[2020-05-01] MEDS: InsuLIN REG 1unit/0.01ml Soln (100units/ml) SC SCH ×5 (03:47→20:00)
[2020-05-01] MEDS: ACCU-CHEK COMFORT CURVE STRIP VI SCH ×5 (03:48→20:00)
--- NOTE | 2020-05-01 03:48 | NUR ---
ACCU-CHECK, BS 121 . NO COVERAGE. CONTINUE TO MONITOR.
[2020-05-01] MEDS: PROMETHAZINE HCL 25 MG/ML 1ML IV PRN (05:12)
--- NOTE | 2020-05-01 05:23 | NUR ---
MEDICATED PATIENT FOR NAUSEA ORDERED. CONTINUE TO MONITOR.
--- NOTE | 2020-05-01 05:50 | NUR ---
PATIENT'S DE SAT TO 70%, RT CHANGED TO 15L/NON-REBREATHER, O2 SAT BACK TO 97%. CONTINUE TO MONITOR.
[2020-05-01] MEDS: INSULIN LANTUS (GLARGINE) 1 /0.01ml (100units/ml) SC SCH ×2 (06:11→22:00)
--- NOTE | 2020-05-01 06:13 | NUR ---
ACCU-CHECK, BS 98. NO LANTUS GIVEN. CONTINUE TO MONITOR.
--- NOTE | 2020-05-01 07:20 | NUR ---
ASSUMED CARE RECEIVED REPORT FROM KIRILL LUCIANO. PER MUSTAPHA; PATIENT CONTINUED TO REMOVE O2 THROUGHOUT THE NIGHT AND DESATING. PATIENT PLACED ON 15L NONREBREATHER, SATING 98-995 PER MUSTAPHA.
--- NOTE | 2020-05-01 07:20 | NUR ---
INITIAL CONTACT ENTERED PATIENT ROOM WITH PATIENT'S NONREBREATHER ON SIDE OF BED. PATIENT RESPONSIVE. REPLACED O2 TO PATIENT. 02 SAT 82%, B/P 85/56 HR 119. PATIENT FOLLOWING COMMANDS TO TAKE DEEP BREATHS O2 RAISED TO 92%, B/P 86/53, HR 120. BLOOD SUGAR 90. DR Froylan ISSA PAGED RE: FINDINGS. AWAITING RETURN CALL
--- NOTE | 2020-05-01 07:30 | NUR ---
Froylan ISSA RETURNED CALL RE: PATIENT FINDINGS. ORDERS RECEIVED/CARRIED OUT. CONTINUING TO MONITOR PATIENT AT BEDSIDE
[2020-05-01] MEDS ORDERED: SODIUM CHLORIDE 0.9% 2,050 ML IV ONE (07:45)
[2020-05-01] MEDS: methylPREDNISolone SOD SUCC 40 MG/ML VL IV SCH ×2 (08:38→22:00)
[2020-05-01] MEDS: FERROUS SULFATE 325 MG TAB PO SCH ×3 (08:38→17:41)
[2020-05-01] MEDS: FOLIC ACID 1 MG TAB PO SCH (08:38)
--- NOTE | 2020-05-01 08:38 | NUR ---
MEDICATIONS MEDICATED PATIENT PER MD ORDERS. PATIENT ABLE TO RESPOND NAME, , NO KNOWN ALLERGIES. PATIENT INFORMED TO KEEP NONREBREATHER IN PLACE. PATIENT VERBALIZED UNDERSTANDING. WILL CONTINUE TO MONITOR
[2020-05-01] MEDS: FAMOTIDINE (10MG/ML) 2ML VL IV SCH (08:45)
[2020-05-01] MEDS: MUPIROCIN 2% OINT 15gm or 22gm EACHNOSTRI SCH ×2 (08:45→22:00)
[2020-05-01] MEDS: METOPROLOL TARTRATE 50 MG TAB PO SCH (08:45)
[2020-05-01 08:48] LABS: Red Cell Distribution Width 15.3 % (11.8-14.3)
[2020-05-01 08:50] LABS: Hematocrit 21.6 % (41.0-53.0); Mean Corpuscular Hemoglobin 26.9 pg (28.0-32.0); Mean Corpuscular Hgb Conc. 32.5 g/dL (32.0-36.0); Mean Corpuscular Volume 82.8 fL (80.0-100.0); Platelet Count (auto) 24 10^3/uL (140-450); Red Blood Cells 2.62 10^6/uL (4.5-5.90)
--- NOTE | 2020-05-01 08:50 | NUR ---
ROUNDING ROUNDING ON PATIENT. PATIENT UNRESPONSIVE, NONREBREATHER ON SIDE OF BED. PATIENT NOT RESPONDING TO NAME. PULSES CHECKED CODE BLUE CALLED
--- NOTE | 2020-05-01 08:53 | NUR ---
SEE CODE BLUE SHEET
[2020-05-01 08:56] LABS: White Blood Cell 1.2 10^3/uL (4.4-10.8)
--- NOTE | 2020-05-01 08:56 | NUR ---
ROSC BP 171/95, HR 169, 02SAT 88% on ventilator.
[2020-05-01 08:57] LABS: Basophils % (manual) 0 (0.0-2.0); Blast Cells 0; Promyelocytes % 0; Reactive Lymphocytes 0
[2020-05-01 09:08] LABS: Calcium 7.3 mg/dL (8.5-10.1); Potassium 4.2 mmol/L (3.5-5.1)
[2020-05-01 09:10] LABS: BUN/Creatinine Ratio 21.5
--- NOTE | 2020-05-01 09:10 | NUR ---
Portable chest xray done at bedside.
[2020-05-01 09:13] LABS: Bilirubin, Total 0.7 mg/dL (0.2-1.0); Total Protein 4.4 g/dL (6.4-8.2)
--- NOTE | 2020-05-01 09:15 | NUR ---
Froylan ISSA RETURNED CALL TO PATIENT FINDINGS. NEW ORDERS RECEIVED
[2020-05-01 09:32] LABS: Albumin 0.9 g/dL (3.4-5.0)
--- NOTE | 2020-05-01 09:40 | NUR ---
Re: Rt RT at bedside for ABG.
[2020-05-01] MEDS ORDERED: FONDAPARINUX SODIUM 7.5 MG/0.6 ML INJ SC SCH (09:45)
[2020-05-01] MEDS ORDERED: MORPHINE SULF INJ 2 MG/ML SYRINGE 1ML IV PRN (09:45)
[2020-05-01] MEDS ORDERED: NOREPINEPHRINE 8 MG/250ML KIT 250 ML IV SCH (09:45)
[2020-05-01] MEDS ORDERED: NITROGLYCERIN 0.4 MG SL TAB SL PRN (09:45)
--- NOTE | 2020-05-01 09:46 | NUR ---
EKG done. SR 99.
--- NOTE | 2020-05-01 09:48 | NUR ---
BAILEE/JULES LEFT MESSAGE RE: PATIENT STATUS PER DR Froylan ISSA REQUEST. AWAITING RETURN CALL
[2020-05-01] MEDS ORDERED: AZITHROMYCIN 250 MG TAB PO SCH (10:00)
[2020-05-01 10:01] LABS: Band Neutrophils % (manual) 17; Eosinophils % (manual) 2 (0-7); Lymphocytes % (manual) 9 (10.0-50.0); Metamyelocytes % 5; Monocytes % (manual) 5 (0-12); Myelocytes % 1
[2020-05-01] MEDS ORDERED: SODIUM BICARBONATE 8.4 % INJ 50ML VIAL IV ONE ×2 (10:15→12:30)
--- NOTE | 2020-05-01 10:22 | NUR ---
FAMILY CALLED NOK IN CHART RE: PATIENT STATUS. NO ANSWERING SERVICE AVAILABLE.
--- NOTE | 2020-05-01 10:27 | NUR ---
FAMILY SISTER CHANI . UPDATED ON PATIENT STATUS. ALL QUESTIONS/CONCERNS ANSWERED.
[2020-05-01] MEDS: MEROPENEM 500MG IVPB 50 ML IV SCH ×2 (10:50→22:00)
--- NOTE | 2020-05-01 11:02 | NUR ---
Re:RT Repeat ABG collected by RT.
--- NOTE | 2020-05-01 11:10 | NUR ---
Respiratory note: FOLLOW UP ABG RESULTS REPORTED TO DR MOROCHO. AWAITING CALL BACK.
--- NOTE | 2020-05-01 11:15 | NUR ---
No change in patient condition. Remains unresponsive on mechanical ventilator. Currently on Levophed gtt per orders. Will continue to monitor.
[2020-05-01] MEDS ORDERED: MIDAZOLAM DRIP 50 mg/50mL 50 ML IV ONE (11:25)
--- NOTE | 2020-05-01 11:27 | NUR ---
Re: Bed assignment Patient assigned to room 104 with Rachael ROY. RT informed.
--- NOTE | 2020-05-01 11:40 | NUR ---
PT REC'D TO 104 FROM [facility]. REPORT REC'D FROM H[place]U PT NONRESPONSIVE, NO CORNEAL REFLEX. MOVES EXTREMITIES SPONT, NO WITHDRAWAL OR LOCALIZATION. PUPILS 6MM NONREACTIVE. ST ON MONITOR. BP LABILE REC'D PT IN 20 LEVOPHED BP 200/110. TURNED OFF LEVO THEN RESTARTED AT 1215. SEE IV FLOW SHEET FOR TITRATION. ORALLY INTUBATED WITH 8.0/25AT TEETH. "GUPPY" BREATHING. MIDLINE RAKEL AND #20 ANGIO LT AC. ORDER FOR PICC NOTED. PER PICC NURSE, PTT AND CBC ORDERED. NG #16 LT NARE SECURED TO ETT. CLAMPED. SCHUSTER PRESENT DRAINING SCANT DK CIPRIANO URINE. S/P LT BKA. STUMP HEALED. RECTAL PROBE INSERTED FOR TEMP MONITOR. SKIN ASSESSED-INTACT, NO REDNESS. OPTIFOAM APPLIED TO SACRUM FOR PROPHYLAXIS.
--- NOTE | 2020-05-01 11:50 | NUR ---
Respiratory note: ETT ADVANCED BY RT SYDNIE. ETT NOW SECURED AT 26 CM. ARRIVED IN ICU. TRANSPORT WENT WITHOUT INCIDENT. PT VENTILATED/OXYGENATED BY RT DURING TRANSPORT.RN AT BEDSIDE. ALARMS VERIFIED AND AUDIBLE. NO VENT CHANGES ORDERED AT THIS TIME,WILL CONTINUE TO MONITOR ORDERED
--- NOTE | 2020-05-01 12:20 | NUR ---
RESPIRATORY VENT CHANGES ORDERED BY DR MOROCHO. AC 22, 550, +8. RN BAMBI AWARE OF CHANGES.ABG IN AN HOUR
[2020-05-01] MEDS ORDERED: ACETAMINOPHEN 650 mg PER 20 mL UD ONE (13:01)
[2020-05-01 13:29] LABS: Hematocrit 22.6 % (41.0-53.0); Hemoglobin 7.2 g/dL (13.5-17.5); Mean Corpuscular Hemoglobin 26.5 pg (28.0-32.0); Mean Corpuscular Hgb Conc. 31.7 g/dL (32.0-36.0); Mean Corpuscular Volume 83.6 fL (80.0-100.0); Platelet Count (auto) 29 10^3/uL (140-450); Red Blood Cells 2.71 10^6/uL (4.5-5.90); Red Cell Distribution Width 15.4 % (11.8-14.3)
[2020-05-01 13:39] LABS: INR 1.61 (0.9-1.15); Partial Thromboplastin Time 47.8 sec (23.64-32.05)
--- NOTE | 2020-05-01 14:00 | NUR ---
REASSESS TEMP HAS RISEN SINCE TYLENOL. ICE BAGS TO AXILLA AND GROIN.
[2020-05-01 14:06] LABS: White Blood Cell 1.5 10^3/uL (4.4-10.8)
[2020-05-01 14:07] LABS: Basophils % (manual) 0 (0.0-2.0); Blast Cells 0; Reactive Lymphocytes 0
[2020-05-01] MEDS ORDERED: MIDAZOLAM DRIP 50 mg/50mL 50 ML IV SCH (14:20)
--- NOTE | 2020-05-01 14:20 | NUR ---
INCREASE WORK OF BREATHING, HR UP. VERSED STARTED ORDERED.
--- NOTE | 2020-05-01 14:25 | NUR ---
PICC NURSE HERE. PHONE CONSENT GIVEN BY SISTER CHANI ALSO UPDATED ON CONDITION, QUESTIONS ANSWERED
[2020-05-01] MEDS ORDERED: DEXTROSE (50%) 50ML SYRG IV ONE (14:27)
[2020-05-01] MEDS ORDERED: EPINEPHrine HCL 1 MG/10 ML SYRG IV ONE (14:27)
[2020-05-01] MEDS ORDERED: FONDAPARINUX SODIUM 7.5 MG/0.6 ML INJ SC ONE (14:30)
[2020-05-01 14:31] LABS: Band Neutrophils % (manual) 17; Eosinophils % (manual) 1 (0-7); Lymphocytes % (manual) 16 (10.0-50.0); Metamyelocytes % 9; Monocytes % (manual) 10 (0-12); Myelocytes % 3; Promyelocytes % 1
--- NOTE | 2020-05-01 14:57 | NUR ---
CONSULT CALLED TO DR. ACOSTA'S OFFICE
[2020-05-01] MEDS ORDERED: LIDOCAINE 1% (LOCAL ANESTH.) PF 5ml SDV ID ONE (15:00)
--- NOTE | 2020-05-01 15:15 | NUR ---
PICC line placement Patient significant other educated on need for PICC line placement. All risks and benefits explained and all questions and concerns addressed prior to procedure. Noted past medical history and allergies with no contraindications. INR and Plt counts within acceptable range. 5 fr PICC line inserted via right brachial vein using [employer]'s [employer] US and Tip Location System. Sterile technique with maximum barrier precautions utilized. Blood return obtained from each of the 3 lumens and each flushed easily with NS using proper technique. PICC secured with Stat-lock; biodisc and occlusive dressing applied. Stat portable chest x-ray obtained for PICC tip placement. *Baseline Arm Circumference 24 cm. Internal length 43 cm. External length 0 cm. PICC lot #[id number]
--- NOTE | 2020-05-01 15:25 | NUR ---
Okay to use PICC line Xray completed and reviewed. Okay to use PICC line. Rachael ROY notified.
--- NOTE | 2020-05-01 17:38 | NUR ---
UPON REVIEW OF NOTES OF ADMISSION, DR. ACOSTA HAS SEEN PT. OK TO GIVE ARIXTRA EVEN WITH PANCYTOPENIA.
--- NOTE | 2020-05-01 20:00 | NUR ---
RECIEVED PT VENTILATED AND SEDATE WITH VERSED 8MG/HR, FIO2 75% TV 550 PEEP8 AC 22 PT RIDING VENT, NO RESPONSE TO ANY NOXIOUS STIMULI, RIGHT UPPER ARM PICC LINE INFUSING LEVOPHED GTT AT 20, SBP 90'S, URINE OUTPUT SCANT DRK CIPRIANO URINE, SEE INTERVENTIONS FOR HEAD TO TOE ASSESSMENT AND VITAL SIGNS, RECTAL TEMP 99.7
--- NOTE | 2020-05-01 20:45 | NUR ---
DR. MOROCHO HERE MAKING ROUNDS, FIO2 DECREASED TO 60%
[2020-05-01] MEDS ORDERED: VANCOMYCIN 500 MG in D5W 5% 100 ML IV ONE (21:00)
[2020-05-01] MEDS ORDERED: SODIUM CHLOR 0.9% PF (SALINE LOCK) 10ML VIAL/SYR IV SCH (22:00)
[2020-05-01 22:22] LABS: INR 1.91 (0.9-1.15); Partial Thromboplastin Time 58.4 sec (23.64-32.05)
[2020-05-01 22:26] LABS: Calcium 7.2 mg/dL (8.5-10.1); Magnesium 2.4 mg/dL (1.6-2.6); Potassium 4.5 mmol/L (3.5-5.1)
[2020-05-01 22:29] LABS: BUN/Creatinine Ratio 18.3; Bilirubin, Direct 0.9 mg/dL (0-0.2); Bilirubin, Total 1.1 mg/dL (0.2-1.0); Total Protein 4.5 g/dL (6.4-8.2)
[2020-05-01 22:32] LABS: Albumin 0.9 g/dL (3.4-5.0)
--- NOTE | 2020-05-01 23:00 | NUR ---
SPOKE WITH DAUGHTER CHANI, UPDATE GIVEN REGARDING NEURO STATUS, VITAL SIGNS, QUESTIONS ANSWERED
[2020-05-01] MEDS ORDERED: ATROPINE SULFATE 1 MG/1 ML VIAL ONE (23:28)
--- NOTE | 2020-05-01 23:28 | NUR ---
PT WENT BRADYCARDIC 50 THEN TO 30'S, NO PULSE CODE BLUE CALLED, SEE CODE SHEET
--- NOTE | 2020-05-01 23:35 | NUR ---
DAUGHTER CHANI NOTIFIED OF CARDIAC ARREST EVENT
[2020-05-02] VITALS: BP 68/32
[2020-05-02] MEDS: LEVALBUTEROL HCL 1.25 MG/3 ML NEB NEB SCH
[2020-05-02] MEDS: ACCU-CHEK COMFORT CURVE STRIP VI SCH
[2020-05-02] MEDS: InsuLIN REG 1unit/0.01ml Soln (100units/ml) SC SCH
--- NOTE | 2020-05-02 | NUR ---
HOSPITALIST PAGED FOR 2ND PRESSOR, LEVOPHED MAXED AT 30MCG/MIN, SBP 60'S
[2020-05-02] MEDS ORDERED: PHENYLEPHRINE IV 250 ML IV ONE (00:05)
--- NOTE | 2020-05-02 00:05 | NUR ---
ABG RESULTS REPORTED TO DR. MOROCHO, WILL GIVE 2 AMPS OF NA BICARB IV FOLLOWED BY ABG IN 1 HR
[2020-05-02] MEDS ORDERED: EPINEPHrine HCL 1 MG/10 ML SYRG ONE (00:06)
[2020-05-02] MEDS ORDERED: SODIUM BICARBONATE 8.4% INJ 50ML SYRINGE ONE ×2 (00:13→00:54)
[2020-05-02 00:15] VITALS: BP 77/30
[2020-05-02 00:15] LABS: Red Cell Distribution Width 16.7 % (11.8-14.3)
[2020-05-02 00:17] LABS: Hematocrit 23.6 % (41.0-53.0); Hemoglobin 7.1 g/dL (13.5-17.5); Mean Corpuscular Hemoglobin 26.8 pg (28.0-32.0); Mean Corpuscular Hgb Conc. 30.3 g/dL (32.0-36.0); Mean Corpuscular Volume 88.5 fL (80.0-100.0); Platelet Count (auto) 25 10^3/uL (140-450); Red Blood Cells 2.67 10^6/uL (4.5-5.90)
[2020-05-02 00:23] LABS: White Blood Cell 1.9 10^3/uL (4.4-10.8)
[2020-05-02 00:26] LABS: Basophils % (manual) 0 (0.0-2.0); Blast Cells 0; Eosinophils % (manual) 0 (0-7); Promyelocytes % 0; Reactive Lymphocytes 0
[2020-05-02 00:30] VITALS: BP 70/25
[2020-05-02] MEDS ORDERED: VASOPRESSIN 20 UNIT/ML ONE (00:35)
[2020-05-02 00:45] VITALS: BP 65/22
--- NOTE | 2020-05-02 00:45 | NUR ---
VASOPRESSIN GTT STARTED PER PROTOCOL
--- NOTE | 2020-05-02 00:52 | NUR ---
PT SKYLAR AGAIN, NO PULSE, CODE BLUE STARTED, SEE CODE SHEET
[2020-05-02] MEDS ORDERED: SODIUM BICARBONATE 50ML VIAL 150 ML in SOD CHL 0.45% 1,000 ML IV SCH (01:00)
[2020-05-02] MEDS ORDERED: ALBUMIN 5% 250 ML IV ONE ×2 (01:00→01:02)
[2020-05-02] MEDS ORDERED: VASOPRESSIN 50 UNITS in D5W 5% 247.5 ML IV SCH (01:00)
--- NOTE | 2020-05-02 01:00 | NUR ---
5%ALBUMIN 250ML GIVEN, 1/2 NS 1L WITH 3AMPS NA BICARB HUNG TO RUN 100ML/HR, FAMILY HERE NOW AT BEDSIDE
[2020-05-02] MEDS ORDERED: SODIUM BICARBONATE 8.4 % INJ 50ML VIAL IV ONE ×2 (01:01→01:29)
[2020-05-02 01:13] LABS: Monocytes % (manual) 2 (0-12); Myelocytes % 2
[2020-05-02 01:15] VITALS: BP 65/30
[2020-05-02 01:17] LABS: Band Neutrophils % (manual) 26; Lymphocytes % (manual) 40 (10.0-50.0); Metamyelocytes % 6
--- NOTE | 2020-05-02 01:25 | NUR ---
PT WENT SKYLAR 50'S WITH A PULSE, ATROPINE 1MG GIVEN IV WITH NO EFFECT
--- NOTE | 2020-05-02 01:30 | NUR ---
CODE BLUE CALLED, SEE CODE SHEET, ROSC AT 0138
[2020-05-02] MEDS ORDERED: DEXTROSE 50% SYRINGE 50 ML IV ONE (01:34)
[2020-05-02 01:35] VITALS: BP_DIAS 44
[2020-05-02] MEDS ORDERED: EPINEPHrine HCL 250 ML IV ONE (01:38)
--- NOTE | 2020-05-02 02:20 | NUR ---
EPINEPHRINE GTT STARTED PER PROTOCOL
--- NOTE | 2020-05-02 02:30 | NUR ---
FAMILY REMAINS HERE AND FATHER HERE, DECISION MADE TO MAKE PT DNR, PAPERWORK SIGNED
--- NOTE | 2020-05-02 02:32 | NUR ---
PT ASYSTOLE, PRONOUNCE BY CORNEL SAINI ELECTRIC PILE DRIVER OPERATOR
--- NOTE | 2020-05-02 02:45 | NUR ---
CALL PLACED TO BEEF GRADER
--- NOTE | 2020-05-02 03:35 | NUR ---
[facility] NOTIFIED , BODY RELEASED CASE # [id number]
--- NOTE | 2020-05-02 06:05 | NUR ---
ENGINEERING OPERATOR RETURNS CALL, STATES NOT REPORTABLE AT THIS TIME, AND NO CASE # PER JOHN MUNOZ
--- NOTE | 2020-05-02 06:15 | NUR ---
MESSAGE LEFT WITH DR. Froylan ISSA OF PT PASSING
--- NOTE | 2020-05-02 08:19 | NUR ---
POST MORTEM CARE CARE PERFORMED. LINES REMOVED. PT PLACED IN BAG WITH TAGS APPLIED. [facility] [employer] CALLED FOR PICKUP. INFORMATION OBTAINED AND AWAITING CALL BACK FOR ETA. MACHINE SPLITTER OBEY NOTIFIED.
[2020-05-02] MEDS ORDERED: FONDAPARINUX SODIUM 7.5 MG/0.6 ML INJ SC SCH (10:00)
--- NOTE | 2020-05-02 10:43 | NUR ---
BODY PICKED UP BY [facility] [employer]
[2020-05-02] MEDS ORDERED: EPINEPHrine HCL 1 MG/10 ML SYRG IV ONE (10:57)
[2020-05-02] MEDS ORDERED: SODIUM BICARBONATE 8.4% INJ 50ML SYRINGE IV ONE (10:57)
[2020-05-02] MEDS ORDERED: ATROPINE SULF 1 MG/10ml SYR IV ONE (10:57)
[2020-05-02] MEDS ORDERED: DEXTROSE (50%) 50ML SYRG IV ONE (10:57)
[2020-05-02] MEDS ORDERED: CALCIUM CHLOR(10%) 100MG/ML 10ML SYRINGE IV ONE (10:57)
== END 2020-05-02 10:58 | disposition expired | DRG 720 ==
LOC: ER 11:09 → TELE 11:10 → TELE-WESTW 04-24 20:40 → ICU WEST 04-25 21:50 → TELE-CENTR 04-26 18:00 → ICU WEST 05-01 15:01
PROVIDERS: ADMIT Hospitalist; ATTEND Internal Medicine
PROC: 02HV33Z Insertion of Infusion Device into Superior Vena Cava, Percutaneous Approach (ICD-10-PCS; 2020-05-01)
PROC: 0D9670Z Drainage of Stomach with Drainage Device, Via Natural or Artificial Opening (ICD-10-PCS; 2020-05-01)
PROC: 5A1935Z Respiratory Ventilation, Less than 24 Consecutive Hours (ICD-10-PCS; 2020-05-01)
PROC: 0BH17EZ Insertion of Endotracheal Airway into Trachea, Via Natural or Artificial Opening (ICD-10-PCS; 2020-05-01)
PROC: 5A12012 Performance of Cardiac Output, Single, Manual (ICD-10-PCS; principal; 2020-05-02)
DX: A41.9 Sepsis, unspecified organism (principal); E11.10 Type 2 diabetes mellitus with ketoacidosis without coma; R65.21 Severe sepsis with septic shock; E87.1 Hypo-osmolality and hyponatremia; J96.01 Acute respiratory failure with hypoxia; E87.8 Other disorders of electrolyte and fluid balance, not elsewhere classified; J18.9 Pneumonia, unspecified organism; E43 Unspecified severe protein-calorie malnutrition; R80.9 Proteinuria, unspecified; D50.9 Iron deficiency anemia, unspecified; D63.8 Anemia in other chronic diseases classified elsewhere; R60.1 Generalized edema; N39.0 Urinary tract infection, site not specified; J98.11 Atelectasis; D61.818 Other pancytopenia; D53.9 Nutritional anemia, unspecified; E11.40 Type 2 diabetes mellitus with diabetic neuropathy, unspecified; E83.39 Other disorders of phosphorus metabolism; E87.5 Hyperkalemia; I46.9 Cardiac arrest, cause unspecified; R53.83 Other fatigue; F17.200 Nicotine dependence, unspecified, uncomplicated; D63.1 Anemia in chronic kidney disease; E78.5 Hyperlipidemia, unspecified; Z66 Do not resuscitate; E11.22 Type 2 diabetes mellitus with diabetic chronic kidney disease; N18.3 Chronic kidney disease, stage 3 (moderate); R00.0 Tachycardia, unspecified; I12.9 Hypertensive chronic kidney disease with stage 1 through stage 4 chronic kidney disease, or unspecified chronic kidney disease; F41.9 Anxiety disorder, unspecified; J44.0 Chronic obstructive pulmonary disease with (acute) lower respiratory infection; Z89.512 Acquired absence of left leg below knee; N17.0 Acute kidney failure with tubular necrosis; R00.1 Bradycardia, unspecified; Z68.28 Body mass index [BMI] 28.0-28.9, adult; Z20.828 Contact with and (suspected) exposure to other viral communicable diseases
CPT/HCPCS: 31500; 36415; 36569; 36600; 71045; 71250; 72146; 78306; 78582; 80048; 80053; 80076; 80202; 80307; 81001; 82010; 82607; 82668; 82728; 82746; 82805; 82962; 83010; 83540; 83550; 83605; 83615; 83735; 83880; 83930; 83935; 83970; 84100; 84132; 84156; 84300; 84443; 84484; 84550; 85007; 85025; 85027; 85045; 85379; 85610; 85730; 86141; 86703; 86803; 86880; 86885; 87040; 87070; 87077; 87081; 87086; 87205; 87340; 87804; 93005; 93306; 93970; 94002; 94640; 94760; 97163; 99291; G0378; J0171; J0461; J1815; J2001; J2185; J2250; J2405; J2543; J3490; J7060